=== PATIENT | female | born 1960 | race Caucasian/White ===

== ENCOUNTER → 2018-02-04 16:27 | Outpatient (REF) | payer OTHER, SELFPAY | LOC: LAB 16:27 | PROVIDERS: Visit Provider Otolaryngology | DX: H90.0 Conductive hearing loss, bilateral (principal); H60.311 Diffuse otitis externa, right ear | CPT/HCPCS: 87070; 87077; 87186; 87205 ==

== ENCOUNTER → 2018-07-15 19:29 | Outpatient (REF) | payer OTHER, MEDICAID, SELFPAY | LOC: LAB 19:29 | PROVIDERS: Visit Provider Otolaryngology | DX: H60.311 Diffuse otitis externa, right ear (principal) | CPT/HCPCS: 87070; 87077; 87186; 87205 ==

== ENCOUNTER → 2018-08-01 11:38 | Outpatient (CLI) | payer OTHER, MEDICAID, SELFPAY ==
[2018-08-01 13:02] LABS: Alanine Aminotransferase 36 IU/L (9-52); Albumin 4.6 g/dL (3.5-5.0); Albumin Globulin Ratio 1.6 (1.0-2.8); Alkaline Phosphatase 56 U/L (38-126); Aspartate Aminotransferase 32 IU/L (14-36); Bilirubin Total 0.3 mg/dL (0.2-1.3); Blood Urea Nitrogen 12 mg/dL (7-17); Calcium 9.5 mg/dL (8.4-10.2); Carbon Dioxide 27 mmol/L (22-32); Chloride 100 mmol/L (98-107); Estimated Glomerular Filt Rate > 60.0 mL/min (>60); Globulin 2.8 g/dL (1.7-4.1); Glucose 129 mg/dL (70-100); HEMOLYSIS < 15 (0-50); Potassium 4.5 mmol/L (3.4-5.1); Sodium 138 mmol/L (137-145); Total Protein 7.4 g/dL (6.3-8.2)
== END ==
PROVIDERS: PCP Student in an Organized Health Care Education/Training Program; Visit Provider Otolaryngology
DX: H60.311 Diffuse otitis externa, right ear (principal); H72.01 Central perforation of tympanic membrane, right ear
CPT/HCPCS: 36415; 80053

== ENCOUNTER → 2018-09-13 18:51 | Outpatient (REF) | payer OTHER, MEDICAID, SELFPAY | LOC: LAB 18:51 | PROVIDERS: PCP Student in an Organized Health Care Education/Training Program; Visit Provider Otolaryngology | DX: H60.311 Diffuse otitis externa, right ear (principal); H72.01 Central perforation of tympanic membrane, right ear | CPT/HCPCS: 87070; 87077; 87205 ==

== ENCOUNTER → 2018-10-31 10:54 | Outpatient (CLI) | payer OTHER, MEDICAID, SELFPAY ==
[2018-10-31 11:36] LABS: Add Manual Diff / Slide Review NO; Basophils Absolute Auto 0 /uL (0-100); Basophils Percent Auto 0.6 % (0-2); Eosinophils Absolute Auto 100 /uL (0-450); Eosinophils Percent Auto 1.9 % (2-4); Hematocrit 39.9 % (36-46); Hemoglobin 13.6 g/dL (12.0-16.0); Lymphocytes Absolute Auto 2000 /uL (1100-4500); Lymphocytes Percent Auto 25.1 % (25-40); Mean Corpuscular Hemoglobin 33.2 PG (26-34); Mean Corpuscular Volume 97.6 fL (80-100); Monocytes Absolute Auto 500 /uL (0-900); Monocytes Percent Auto 6.7 % (3-14); Neutrophils Absolute Auto 5100 /uL (1500-7000); Neutrophils Percent Auto 65.7 % (50-75); Platelet Count 300 X10^3/uL (150-400); Red Blood Cell Count 4.09 X10^6/uL (4.0-5.2); Red Cell Distribution Width 12.1 % (11.6-14.8); White Blood Cell Count 7.8 X10^3/uL (4.5-11.0)
[2018-10-31 13:02] LABS: Alanine Aminotransferase 49 IU/L (9-52); Albumin 4.6 g/dL (3.5-5.0); Albumin Globulin Ratio 1.8 (1.0-2.8); Alkaline Phosphatase 52 U/L (38-126); Aspartate Aminotransferase 38 IU/L (14-36); BUN Creatinine Ratio 17.5 (6-22); Bilirubin Total 0.3 mg/dL (0.2-1.3); Blood Urea Nitrogen 14 mg/dL (7-17); Carbon Dioxide 24 mmol/L (22-32); Chloride 99 mmol/L (98-107); Estimated Glomerular Filt Rate > 60.0 mL/min (>60); Globulin 2.6 g/dL (1.7-4.1); Glucose 87 mg/dL (70-100); HEMOLYSIS < 15 (0-50); Potassium 4.5 mmol/L (3.4-5.1); Sodium 135 mmol/L (137-145); Total Protein 7.2 g/dL (6.3-8.2)
== END ==
PROVIDERS: PCP Student in an Organized Health Care Education/Training Program; Visit Provider Internal Medicine Infectious Disease
DX: H70.11 Chronic mastoiditis, right ear (principal)
CPT/HCPCS: 36415; 80053; 85025

== ENCOUNTER → 2018-11-04 09:49 | Outpatient (CLI) | payer OTHER, MEDICAID, SELFPAY ==
[2018-11-04 10:37] LABS: Add Manual Diff / Slide Review NO; Basophils Absolute Auto 0 /uL (0-100); Basophils Percent Auto 0.4 % (0-2); Eosinophils Absolute Auto 100 /uL (0-450); Eosinophils Percent Auto 1.8 % (2-4); Hematocrit 41.8 % (36-46); Hemoglobin 14.1 g/dL (12.0-16.0); Lymphocytes Absolute Auto 2100 /uL (1100-4500); Lymphocytes Percent Auto 30.1 % (25-40); Mean Corpuscular HGB Conc 33.6 % (30-36); Mean Corpuscular Hemoglobin 32.9 PG (26-34); Monocytes Absolute Auto 600 /uL (0-900); Monocytes Percent Auto 8.3 % (3-14); Neutrophils Absolute Auto 4200 /uL (1500-7000); Neutrophils Percent Auto 59.4 % (50-75); Platelet Count 306 X10^3/uL (150-400); Red Blood Cell Count 4.27 X10^6/uL (4.0-5.2); Red Cell Distribution Width 12.2 % (11.6-14.8)
[2018-11-04 11:22] LABS: Alanine Aminotransferase 37 IU/L (9-52); Albumin 5.1 g/dL (3.5-5.0); Albumin Globulin Ratio 1.8 (1.0-2.8); Alkaline Phosphatase 55 U/L (38-126); Aspartate Aminotransferase 36 IU/L (14-36); BUN Creatinine Ratio 13.3 (6-22); Bilirubin Total 0.3 mg/dL (0.2-1.3); Blood Urea Nitrogen 12 mg/dL (7-17); Carbon Dioxide 25 mmol/L (22-32); Chloride 97 mmol/L (98-107); Estimated Glomerular Filt Rate > 60.0 mL/min (>60); Globulin 2.8 g/dL (1.7-4.1); Glucose 86 mg/dL (70-100); HEMOLYSIS < 15 (0-50); Potassium 4.4 mmol/L (3.4-5.1); Sodium 135 mmol/L (137-145); Total Protein 7.9 g/dL (6.3-8.2)
== END ==
PROVIDERS: PCP Student in an Organized Health Care Education/Training Program; Visit Provider Internal Medicine Infectious Disease
DX: H70.11 Chronic mastoiditis, right ear (principal)
CPT/HCPCS: 36415; 80053; 85025

== ENCOUNTER → 2018-11-09 14:42 | Outpatient (CLI) | payer OTHER, MEDICAID, SELFPAY ==
[2018-11-09 15:14] LABS: Add Manual Diff / Slide Review NO; Basophils Absolute Auto 0 /uL (0-100); Basophils Percent Auto 0.4 % (0-2); Eosinophils Absolute Auto 100 /uL (0-450); Eosinophils Percent Auto 1.9 % (2-4); Hemoglobin 13.4 g/dL (12.0-16.0); Lymphocytes Absolute Auto 1600 /uL (1100-4500); Lymphocytes Percent Auto 24.6 % (25-40); Mean Corpuscular HGB Conc 34.3 % (30-36); Mean Corpuscular Hemoglobin 33.5 PG (26-34); Mean Corpuscular Volume 97.8 fL (80-100); Monocytes Absolute Auto 600 /uL (0-900); Monocytes Percent Auto 9.1 % (3-14); Neutrophils Absolute Auto 4200 /uL (1500-7000); Platelet Count 267 X10^3/uL (150-400); Red Blood Cell Count 3.99 X10^6/uL (4.0-5.2); Red Cell Distribution Width 12.5 % (11.6-14.8); White Blood Cell Count 6.5 X10^3/uL (4.5-11.0)
[2018-11-09 15:29] LABS: Alanine Aminotransferase 33 IU/L (9-52); Albumin 4.7 g/dL (3.5-5.0); Albumin Globulin Ratio 1.7 (1.0-2.8); Alkaline Phosphatase 55 U/L (38-126); Aspartate Aminotransferase 30 IU/L (14-36); Bilirubin Total 0.2 mg/dL (0.2-1.3); Blood Urea Nitrogen 14 mg/dL (7-17); Calcium 9.5 mg/dL (8.4-10.2); Carbon Dioxide 26 mmol/L (22-32); Chloride 100 mmol/L (98-107); Estimated Glomerular Filt Rate 56.7 mL/min (>60); Globulin 2.7 g/dL (1.7-4.1); Glucose 99 mg/dL (70-100); HEMOLYSIS < 15 (0-50); Potassium 4.1 mmol/L (3.4-5.1); Sodium 135 mmol/L (137-145); Total Protein 7.4 g/dL (6.3-8.2)
== END ==
PROVIDERS: PCP Student in an Organized Health Care Education/Training Program; Visit Provider Internal Medicine Infectious Disease
DX: H70.11 Chronic mastoiditis, right ear (principal)
CPT/HCPCS: 36415; 80053; 85025

== ENCOUNTER → 2018-11-14 15:15 | Outpatient (CLI) | payer OTHER, MEDICAID, SELFPAY ==
[2018-11-14 16:30] LABS: Add Manual Diff / Slide Review NO; Basophils Absolute Auto 0 /uL (0-100); Basophils Percent Auto 0.4 % (0-2); Eosinophils Absolute Auto 200 /uL (0-450); Eosinophils Percent Auto 2.3 % (2-4); Hematocrit 38.8 % (36-46); Hemoglobin 13.1 g/dL (12.0-16.0); Lymphocytes Absolute Auto 2200 /uL (1100-4500); Lymphocytes Percent Auto 32.3 % (25-40); Mean Corpuscular HGB Conc 33.8 % (30-36); Mean Corpuscular Hemoglobin 33.5 PG (26-34); Mean Corpuscular Volume 99.2 fL (80-100); Monocytes Absolute Auto 600 /uL (0-900); Monocytes Percent Auto 9.4 % (3-14); Neutrophils Absolute Auto 3800 /uL (1500-7000); Neutrophils Percent Auto 55.6 % (50-75); Platelet Count 268 X10^3/uL (150-400); Red Blood Cell Count 3.91 X10^6/uL (4.0-5.2); Red Cell Distribution Width 12.9 % (11.6-14.8); White Blood Cell Count 6.8 X10^3/uL (4.5-11.0)
[2018-11-14 19:37] LABS: Bilirubin Total 0.3 mg/dL (0.2-1.3); Blood Urea Nitrogen 12 mg/dL (7-17); Calcium 9.7 mg/dL (8.4-10.2); Carbon Dioxide 24 mmol/L (22-32); Chloride 99 mmol/L (98-107); Estimated Glomerular Filt Rate > 60.0 mL/min (>60); Glucose 74 mg/dL (70-100); Potassium 3.9 mmol/L (3.4-5.1); Sodium 134 mmol/L (137-145)
[2018-11-14 19:38] LABS: Alanine Aminotransferase 35 IU/L (9-52); Albumin 4.8 g/dL (3.5-5.0); Albumin Globulin Ratio 1.7 (1.0-2.8); Alkaline Phosphatase 59 U/L (38-126); Aspartate Aminotransferase 35 IU/L (14-36); Globulin 2.8 g/dL (1.7-4.1); HEMOLYSIS < 15 (0-50); Total Protein 7.6 g/dL (6.3-8.2)
== END ==
PROVIDERS: PCP Student in an Organized Health Care Education/Training Program; Visit Provider Internal Medicine Infectious Disease
DX: H70.11 Chronic mastoiditis, right ear (principal)
CPT/HCPCS: 36415; 80053; 85025

== ENCOUNTER → 2019-04-08 13:29 | Outpatient (CLI) | payer OTHER, SELFPAY ==
--- NOTE | 2019-04-08 13:35 | DI.MG.S_ITS ---
BILATERAL DIGITAL SCREENING MAMMOGRAM 3D/2D WITH CAD: 04/08/2019 CLINICAL: Routine screening. Comparison is made to exams dated: 03/07/2013 mammogram, 08/21/2013 mammogram, and 06/05/2017 mammogram - [facility]. There are scattered fibroglandular elements in both breasts. Current study was also evaluated with a Computer Aided Detection (CAD) system. No significant masses, calcifications, or other findings are seen in either breast. There has been no significant interval change. IMPRESSION: NEGATIVE There is no mammographic evidence of malignancy. A 1 year screening mammogram is recommended. This exam was interpreted at Station ID: [id number]. NOTE: For mammograms, a report in lay terms will be sent to the patient. Approximately 15% of breast malignancies will not be visualized mammographically. In the management of a palpable breast mass, a negative mammogram must not discourage biopsy of a clinically suspicious lesion. Electronically Signed By: Gemma fritz/morgan:04/10/2019 09:37:35 letter sent: Normal Exam ACR BI-RADS Category 1: Negative 3341F
== END ==
PROVIDERS: PCP Student in an Organized Health Care Education/Training Program; Visit Provider Student in an Organized Health Care Education/Training Program
DX: Z12.31 Encounter for screening mammogram for malignant neoplasm of breast (principal)
CPT/HCPCS: 77063; 77067

== ENCOUNTER → 2020-02-22 15:16 | Outpatient (CLI) | payer OTHER, MEDICAID, SELFPAY ==
--- NOTE | 2020-02-22 15:18 | DI.RAD.S_ITS ---
PROCEDURE: XR HAND RT 2V INDICATIONS: hand injury TECHNIQUE: To views of the hand(s) acquired. COMPARISON: None. FINDINGS: Bones: No fractures or dislocations. Carpal bones are normally aligned. No suspicious bony lesions. Soft tissues: No suspicious soft tissue calcifications. IMPRESSION: No trauma found, no foreign body seen. Dictated by: Rudy Garay M.D. on 02/22/2020 at 16:42 Approved by: Rudy Garay M.D. on 02/22/2020 at 16:43
== END ==
PROVIDERS: PCP Student in an Organized Health Care Education/Training Program; Referring Provider Student in an Organized Health Care Education/Training Program; Visit Provider Student in an Organized Health Care Education/Training Program
DX: S69.91XA Unspecified injury of right wrist, hand and finger(s), initial encounter (principal); X58.XXXA Exposure to other specified factors, initial encounter
CPT/HCPCS: 73120

== ENCOUNTER → 2020-03-08 10:04 | Outpatient (CLI) | payer OTHER, MEDICAID, SELFPAY ==
[2020-03-08 11:27] LABS: BUN Creatinine Ratio 12.5 (6-22); Blood Urea Nitrogen 8 mg/dL (7-17); Calcium 9.6 mg/dL (8.4-10.2); Carbon Dioxide 29 mmol/L (22-32); Chloride 100 mmol/L (98-107); Cholesterol 164 mg/dL (140-199); Estimated Glomerular Filt Rate > 60.0 mL/min (>60); Glucose 107 mg/dL (80-110); HEMOLYSIS < 15 (0-50); Potassium 3.9 mmol/L (3.4-5.1); Sodium 136 mmol/L (137-145); Triglycerides 58 mg/dL (35-150)
[2020-03-08 11:36] LABS: HDL Cholesterol 138 mg/dL (40-60); LDL Cholesterol Calculated 14 mg/dL (<100)
== END ==
PROVIDERS: PCP Student in an Organized Health Care Education/Training Program; Referring Provider Student in an Organized Health Care Education/Training Program; Visit Provider Student in an Organized Health Care Education/Training Program
DX: Z13.220 Encounter for screening for lipoid disorders (principal); I10 Essential (primary) hypertension
CPT/HCPCS: 36415; 80048; 80061

== ENCOUNTER → 2020-08-07 08:28 | Outpatient (CLI) | payer OTHER, MEDICAID, SELFPAY ==
--- NOTE | 2020-08-07 | DI.MG.S_ITS ---
BILATERAL DIGITAL SCREENING MAMMOGRAM 3D/2D WITH CAD: 08/07/2020 CLINICAL: Routine screening. Comparison is made to exams dated: 03/07/2013 mammogram - [facility], 04/08/2019 mammogram - [facility], 06/05/2017 mammogram, and 08/21/2013 mammogram - [facility]. There are scattered fibroglandular elements in both breasts. Current study was also evaluated with a Computer Aided Detection (CAD) system. No significant masses, calcifications, or other findings are seen in either breast. There has been no significant interval change. IMPRESSION: NEGATIVE There is no mammographic evidence of malignancy. A 1 year screening mammogram is recommended. This exam was interpreted at Station ID: [id number]. NOTE: For mammograms, a report in lay terms will be sent to the patient. Approximately 15% of breast malignancies will not be visualized mammographically. In the management of a palpable breast mass, a negative mammogram must not discourage biopsy of a clinically suspicious lesion. Electronically Signed By: Ian hanna/morgan:08/07/2020 09:04:51 letter sent: Normal Exam ACR BI-RADS Category 1: Negative [id number]
== END ==
PROVIDERS: PCP Student in an Organized Health Care Education/Training Program; Referring Provider Student in an Organized Health Care Education/Training Program; Visit Provider Student in an Organized Health Care Education/Training Program
DX: Z12.31 Encounter for screening mammogram for malignant neoplasm of breast (principal)
CPT/HCPCS: 77063; 77067

== ENCOUNTER → 2020-09-09 11:53 | Outpatient (CLI) | payer OTHER, MEDICAID, SELFPAY ==
[2020-09-09 12:28] LABS: COVID19 -Nasal RAPID Negative (Negative)
== END ==
PROVIDERS: PCP Student in an Organized Health Care Education/Training Program; Visit Provider Surgery
DX: Z01.812 Encounter for preprocedural laboratory examination (principal); Z20.822 Contact with and (suspected) exposure to COVID-19
CPT/HCPCS: 87635; C9803

== ENCOUNTER 2020-09-10 09:30 | Outpatient (RCR) | payer OTHER, MEDICAID, SELFPAY ==
--- NOTE | 2020-05-31 12:11 | OT.OP.TRT ---
Visit Care Team Role Provider Type Zacarias Fermin MD Attending Provider Physician Primary Care Provider Referring Provider Specialty: Internal Medicine Address: [address] [place] [address], [address], [address] Email: [email or web address] Occupational Therapy Treatment Note OT Outpatient Treatment Note - Adult Start: 05/17/20 15:58 Freq: Status: Active Protocol: Document 05/31/20 12:00 AMS (Rec: 05/31/20 12:11 AMS [id number]) OT Outpatient Adult Treatment Note Session Time Visit Start Time 10:30 Visit Stop Time 11:15 Total Visit Minutes 45 Visit Information Plan of Care Dates 05/17/20-07/12/20 Setting Treatment Setting Outpatient Care Visit Type Note Type Treatment Note General Information General Information Patient is a 59 year-old right hand dominant female referred to outpatient OT by PCP secondary to right hand injury . PMH: N/A. Health history form. - Subjective Identification Type Name Identification Reconciled With Medical Record Observations Ana reported difficulty managing piece of tape for her 'hearing aide'. Patient/Caregiver Compliance with Home Excellent Exercise Program - Objective Objective Measurements Please refer to objective section of note for specific details. Short Term Goals 1. 0-30 degrees hyperextension of 2nd MCPJ. 2. 0-30 degrees hyperextension of 3rd MCPJ. 3. 0-30 degrees hyperextension of 4th MCPJ. 4. 0-30 degrees hyperextension of 5th MCPJ. Addresser Goals 1. Patient will be modified independent with distal upper extremity home exercise program utilizing provided written and visual instructions. 2. Patient will present with increased functional ability to incorporate dominant right hand in day-to-day life; this will be evidenced by Ana obtaining a score of 25.0 or less on the QuickDASH UE Outcome Measure. 3. Patient will present with increased functional abilities of the right upper extremity; this will be evidenced by patient's ability to return to yoga practice without complaints of pain/discomfort. - Treatment 3 Descriptor Ultrasound. 20% duty cycle. 2. 0 w/cm2. Address inflammation of the hand. Dorsal/volar surfaces focus on prox to 2nd and 3rd MCP joints. 2 Descriptor Joint mobs. Facilitation of MCPJ extension of digits 2-5. 1 Descriptor Obj manipulation. Get-a-position classifier. Bead work. Exercises 2 Descriptor Spherical ball. 1.1# spherical ball. 2x10. 1 Descriptor HEP/POC. Provided medium firm green theraputty for home use; recommended working on digit abduction, digit extension, thumb extension, and functional grasp patterns - pincer grasp, gant pinch, 3-jaw pinch. Recommended bead opposition work and wall yoga (L <-> R weight shifting; forward <-> backwards weight shifting (going up onto toes and back onto heels)). - Assessment Assessment of Improvement Decreased functional independence w/ manipulation of various sized objects; decreased hand/digit strength of the R hand. Decreased tolerance for weight bearing onto the R palm; discomfort experienced w/ L <-> R and forward <-> backwards weight shifting w/ modified weight bearing at wall. Recommend progressing to dynamic surface and/or repositioning of feet further back from wall as tolerated/as able. Ana carries over all recommendations relative to HEP. Recommendations: increase dynamic nature of activities/ exercises as able/tolerated relative to weight bearing; recommend continuing to address inflammation. - Plan Therapy Recommendations Continue with Current Program, Advance per Rehabilitation Protocol
--- NOTE | 2020-06-06 15:54 | OT.OP.TRT ---
Visit Care Team Role Provider Type Zacarias Fermin MD Attending Provider Physician Primary Care Provider Referring Provider Specialty: Internal Medicine Address: [address] [place] [address], [address], [address] Email: [email or web address] Occupational Therapy Treatment Note OT Outpatient Treatment Note - Adult Start: 05/17/20 15:58 Freq: Status: Active Protocol: Document 06/06/20 15:45 AMS (Rec: 06/06/20 15:54 AMS [id number]) OT Outpatient Adult Treatment Note Session Time Visit Start Time 13:00 Visit Stop Time 13:42 Total Visit Minutes 42 Visit Information Plan of Care Dates 05/17/20-07/12/20 Setting Treatment Setting Outpatient Care Visit Type Note Type Treatment Note General Information General Information Patient is a 59 year-old right hand dominant female referred to outpatient OT by PCP secondary to right hand injury . PMH: N/A. Health history form. - Subjective Identification Type Name Identification Reconciled With Medical Record Observations Ana reported 90% compliance with execution of home exercise program; she admitted to forgetting the 'wall yoga' . Patient/Caregiver Compliance with Home Excellent Exercise Program - Objective Objective Measurements Please refer to objective section of note for specific details. Short Term Goals 1. 0-30 degrees hyperextension of 2nd MCPJ. 2. 0-30 degrees hyperextension of 3rd MCPJ. 3. 0-30 degrees hyperextension of 4th MCPJ. 4. 0-30 degrees hyperextension of 5th MCPJ. Correction Goals 1. Patient will be modified independent with distal upper extremity home exercise program utilizing provided written and visual instructions. 2. Patient will present with increased functional ability to incorporate dominant right hand in day-to-day life; this will be evidenced by Ana obtaining a score of 25.0 or less on the QuickDASH UE Outcome Measure. 3. Patient will present with increased functional abilities of the right upper extremity; this will be evidenced by patient's ability to return to yoga practice without complaints of pain/discomfort. - Treatment 3 Descriptor Ultrasound. 20% duty cycle. 2. 0 w/cm2. Address inflammation of the hand. Dorsal/volar surfaces focus on prox to 2nd and 3rd surfaces. Skin intact pre- and post- treatment. 2 Descriptor Joint mobs. Facilitation of MCPJ extension of digits 2-5. Focus on 2nd and 3rd digits. 1 Descriptor Obj manipulation. Get-a-outdoor advertising leasing agent. Single clothespin. Multiple clothespins. Exercises 2 Descriptor Spherical ball. 2.2# spherical ball. 2x10. 3.3# spherical ball. 1 Descriptor HEP/POC. Abduction of digits w / double rubberband. Lifting up cans (for proximal strengthening w/ object manipulation). Recommended extension work w/ single rubberband (duck --> digit extension in gravity eliminated plane) and isometric hold w/ digit and wrist extension for 3-5 seconds w/ single rubberband. Discussed working towards modified weight bearing status at floor level in quadriped/ at wall as tolerated for return to yoga. Ana denied questions. - Assessment Assessment of Improvement Decreased functional independence w/ manipulation of various sized objects; decreased hand/digit strength of the R hand. Decreased proximal UE strength noted by patient and observed in treatment session; this is likely d/t learned non-use and patient protecting right hand from further injury. Improving digit and hand strength compared to previous treatment session; this is evidenced by progression to spherical weighted ball w/ increased resistance. Improving translation and separation of the 2 sides of the hand, as able to progress small clothespins activity. Ana carries over all recommendations relative to HEP. Recommendations: increase dynamic nature of activities/ exercises as able/tolerated relative to weight bearing - Plan Therapy Recommendations Continue with Current Program, Advance per Rehabilitation Protocol
--- NOTE | 2020-06-10 12:26 | OT.OP.TRT ---
Visit Care Team Role Provider Type Zacarias Fermin MD Attending Provider Physician Primary Care Provider Referring Provider Specialty: Internal Medicine Address: [address] [place] [address], [address], [address] Email: [email or web address] Occupational Therapy Treatment Note OT Outpatient Treatment Note - Adult Start: 05/17/20 15:58 Freq: Status: Active Protocol: Document 06/10/20 12:19 AMS (Rec: 06/10/20 12:26 AMS [id number]) OT Outpatient Adult Treatment Note Session Time Visit Start Time 09:30 Visit Stop Time 10:15 Total Visit Minutes 45 Visit Information Plan of Care Dates 05/17/20-07/12/20 Setting Treatment Setting Outpatient Care Visit Type Note Type Treatment Note General Information General Information Patient is a 59 year-old right hand dominant female referred to outpatient OT by PCP secondary to right hand injury . PMH: N/A. Health history form. - Subjective Identification Type Name Identification Reconciled With Medical Record Observations Complaints of overall weakness of upper extremity. Request to review 'wall yoga' exercises. Patient/Caregiver Compliance with Home Excellent Exercise Program - Objective Objective Measurements Please refer to objective section of note for specific details. Short Term Goals 1. 0-30 degrees hyperextension of 2nd MCPJ. 2. 0-30 degrees hyperextension of 3rd MCPJ. 3. 0-30 degrees hyperextension of 4th MCPJ. 4. 0-30 degrees hyperextension of 5th MCPJ. Nurse Charge Rn Goals 1. Patient will be modified independent with distal upper extremity home exercise program utilizing provided written and visual instructions. 2. Patient will present with increased functional ability to incorporate dominant right hand in day-to-day life; this will be evidenced by Ana obtaining a score of 25.0 or less on the QuickDASH UE Outcome Measure. 3. Patient will present with increased functional abilities of the right upper extremity; this will be evidenced by patient's ability to return to yoga practice without complaints of pain/discomfort. - Treatment 3 Descriptor Ultrasound. 20% duty cycle. 2. 0 w/cm2. Address inflammation of the hand. x 8 minutes. Volar surfaces focus on distal palmar surface/radial side of hand. Skin intact pre- and post- treatment. 2 Descriptor Joint mobs. Facilitation of MCPJ extension of digits 2-5. 1 Descriptor Obj manipulation. Get-a-bench molder apprentice. Multiple clothespins - horizontal surface, vertical surface. Exercises 5 Descriptor TT yoga. L <--> R. 2x10. Fowards <--> Backwards. 2x10. Yellow balance disk. 2x10. 4 Descriptor Wall Yoga L <-> R weight bearing. 2x10. Palm <--> fingertips. Heels <- -> Toes. 2x10. 3 Descriptor Crunch and extend ( hyperextension) TT. 2x10. 2 Descriptor Distal UE strengthening Spherical ball. 3.3# spherical ball. 2x10. Wooden dowel. 3# DB attached. x 3 cycles. 1 Descriptor HEP/POC. Reviewed wall yoga as requested by patient. Recommended working on crunch <-> extend (hyperextension at MCP joints). Ana denied questions. - Assessment Assessment of Improvement Decreased functional independence w/ manipulation of various sized objects; decreased hand/digit strength of the R hand. Weakness of R UE overall secondary to non use d/t injury. Positive response to ultrasound treatment; recommend continuing this treatment based on feedback. Advanced therapeutic exercises/ activities on this treatment date. Ana carries over all recommendations relative to HEP. Recommendations: increase dynamic nature of activities/ exercises as able/tolerated relative to weight bearing; recommend consideration of arm bike for working on maintenance/sustained grasp for functional purposes. - Plan Therapy Recommendations Continue with Current Program, Advance per Rehabilitation Protocol
--- NOTE | 2020-06-17 11:43 | OT.OP.TRT ---
Visit Care Team Role Provider Type Zacarias Fermin MD Attending Provider Physician Primary Care Provider Referring Provider Specialty: Internal Medicine Address: [address] [place] [address], [address], [address] Email: [email or web address] Occupational Therapy Treatment Note OT Outpatient Treatment Note - Adult Start: 05/17/20 15:58 Freq: Status: Active Protocol: Document 06/17/20 11:19 AMS (Rec: 06/17/20 11:43 AMS [id number]) OT Outpatient Adult Treatment Note Session Time Visit Start Time 09:40 Visit Stop Time 10:20 Total Visit Minutes 40 Visit Information Plan of Care Dates 05/17/20-07/12/20 Setting Treatment Setting Outpatient Care Visit Type Note Type Treatment Note General Information General Information Patient is a 59 year-old right hand dominant female referred to outpatient OT by PCP secondary to right hand injury . PMH: N/A. Health history form. - Subjective Identification Type Name Identification Reconciled With Medical Record Observations Complaints of weakness/fatigue . Patient/Caregiver Compliance with Home Excellent Exercise Program - Objective Objective Measurements Please refer to objective section of note for specific details. Short Term Goals 1. 0-30 degrees hyperextension of 2nd MCPJ. 2. 0-30 degrees hyperextension of 3rd MCPJ. 3. 0-30 degrees hyperextension of 4th MCPJ. 4. 0-30 degrees hyperextension of 5th MCPJ. Long-Term Goals 1. Patient will be modified independent with distal upper extremity home exercise program utilizing provided written and visual instructions. 2. Patient will present with increased functional ability to incorporate dominant right hand in day-to-day life; this will be evidenced by Ana obtaining a score of 25.0 or less on the QuickDASH UE Outcome Measure. 3. Patient will present with increased functional abilities of the right upper extremity; this will be evidenced by patient's ability to return to yoga practice without complaints of pain/discomfort. - Treatment 3 Descriptor Ultrasound. 20% duty cycle. 2. 0 w/cm2. Address inflammation of the hand. x 8 minutes. Volar surface focus on distal palmar surface/radial side of hand. Skin intact pre- and post- treatment. 2 Descriptor Joint mobs. Facilitation of MCPJ extension of digits 2-5. 1 Descriptor Obj manipulation. Get-a-roll plugger machine operator. Multiple clothespins - horizontal surface, vertical surface. Exercises 7 Descriptor Parallel bar. Weight bearing walk on singular parallel bar. 4 x 6 feet. 6 Descriptor Functional weight bearing. Quadriped. Modified walk-outs. 1x10. Weight shifting seated. Hand. 2x10. Functional weight shift. Elbow . 1x5. 5 Descriptor TT yoga. L <--> R. 2x10. Fowards <--> Backwards. 2x10. Circular weight bearing. 1x10. N/A 06/17 Balance Disk 4 Descriptor Wall Yoga L <-> R weight bearing. 2x10. 3 Descriptor Crunch and extend ( hyperextension) TT. 2x10. 2 Descriptor Distal UE strengthening Spherical ball. 3.3# spherical ball. 2x10. Wooden dowel. 3# DB attached. x 3 cycles. 1 Descriptor HEP/POC. Reviewed wall yoga as requested by patient. Recommended working on crunch <-> extend (hyperextension at MCP joints). Ana denied questions. - Assessment Assessment of Improvement Upgraded weight bearing exercises/activities. Decreased activity tolerance; decreased functional strength of R hand. Continued positive response to ultrasound treatment; recommend continuing this treatment based on feedback. Ana carries over all recommendations relative to HEP. Recommendations: increase dynamic nature of activities/ exercises as able/tolerated relative to weight bearing; recommend consideration of arm bike for working on maintenance/sustained grasp for functional purposes. - Plan Therapy Recommendations Continue with Current Program, Advance per Rehabilitation Protocol
--- NOTE | 2020-06-24 11:55 | OT.OP.TRT ---
Visit Care Team Role Provider Type Zacarias Fermin MD Attending Provider Physician Primary Care Provider Referring Provider Specialty: Internal Medicine Address: [address] [place] [address], [address], [address] Email: [email or web address] Occupational Therapy Treatment Note OT Outpatient Treatment Note - Adult Start: 05/17/20 15:58 Freq: Status: Active Protocol: Document 06/24/20 11:45 AMS (Rec: 06/24/20 11:55 AMS [id number]) OT Outpatient Adult Treatment Note Session Time Visit Start Time 09:30 Visit Stop Time 10:14 Total Visit Minutes 44 Visit Information Plan of Care Dates 05/17/20-07/12/20 Setting Treatment Setting Outpatient Care Visit Type Note Type Treatment Note General Information General Information Patient is a 59 year-old right hand dominant female referred to outpatient OT by PCP secondary to right hand injury . PMH: N/A. Health history form. - Subjective Identification Type Name Identification Reconciled With Medical Record Observations I know I have arthritis per Ana. I had a really hard time making a grocery list this morning. My writing was awful. 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 Patient/Caregiver Compliance with Home Excellent Exercise Program - Objective Objective Measurements Please refer to objective section of note for specific details. Short Term Goals 1. 0-30 degrees hyperextension of 2nd MCPJ. 2. 0-30 degrees hyperextension of 3rd MCPJ. 3. 0-30 degrees hyperextension of 4th MCPJ. 4. 0-30 degrees hyperextension of 5th MCPJ. Nursing Home Goals 1. Patient will be modified independent with distal upper extremity home exercise program utilizing provided written and visual instructions. 2. Patient will present with increased functional ability to incorporate dominant right hand in day-to-day life; this will be evidenced by Ana obtaining a score of 25.0 or less on the QuickDASH UE Outcome Measure. 3. Patient will present with increased functional abilities of the right upper extremity; this will be evidenced by patient's ability to return to yoga practice without complaints of pain/discomfort. - Treatment 3 Descriptor Ultrasound. 20% duty cycle. 2. 0 w/cm2. Address inflammation of the hand. x 8 minutes. Volar surface focus on distal palmar surface/radial side of hand. Skin intact pre- and post- treatment. 2 Descriptor Joint mobs. Facilitation of MCPJ extension of digits 2-5. 1 Descriptor Obj manipulation. Get-a-community health advisor. 3 to 4 small clothespins manipulatives. Pencil olympics. Bolts; flat head/berman head screwdriver. Exercises 7 Descriptor Parallel bar. Weight bearing walk on singular parallel bar. 4 x 6 feet. 6 Descriptor Functional weight bearing. Quadriped. Modified walk-outs. 1x10. Weight shifting seated. Hand. 2x10. Functional weight shift. Elbow . 1x5. 5 Descriptor TT yoga. L <--> R. 2x10. Fowards <--> Backwards. 2x10. Circular weight bearing. 1x10. N/A 06/17 Balance Disk 4 Descriptor Wall Yoga L <-> R weight bearing. 2x10. 3 Descriptor Crunch and extend ( hyperextension) TT. 2x10. 1 Descriptor HEP/POC. Reviewed basic joint protection principles for the hands, including avoiding static positions and avoiding positions of deformity of the digits w/ various grasp patterns. Discussed various options to support dynamic motor coordination of the hand to support handwriting and other functional day-to-day tasks/meaningful occupations. With patient' collaboration, able to identify knitting, playing cards, keyboarding, and other 'fiddling' activities. Ana denied questions. - Assessment Assessment of Improvement Able to tolerate quadriped weight bearing for work tasks in [facility]. Concern verbalized at this time to progressing to full body weight bearing as needed for return to yoga; encouraged modification of positions. Increased concern verbalized on this date in re: fine motor /object manipulation abilities . Thus, collaborated w/ patient to identify various activities (including functional tasks) w/ specific movements that would support improvement in this area. Completed basic joint protection education. Recommend following up w/ observations re: writing, keyboarding, knitting, card playing, functional weight bearing; in addition, recommend follow-up appointment next week and then increasing time between appointments given carry-over. Recommendations: increase dynamic nature of activities/ exercises as able. - Plan Therapy Recommendations Continue with Current Program, Advance per Rehabilitation Protocol
--- NOTE | 2020-07-01 11:53 | OT.OPPOC ---
Physical, Occupational & Speech Therapy At [facility] Ana Tyler [id number] Ana Tyler Visit Care Team Role Provider Type Zacarias Fermin MD Attending Provider Physician Primary Care Provider Referring Provider Address: [address] [place] [address], [address], [address] Occupational Therapy Plan of Care OT Outpatient Adult Evaluation Start: 05/17/20 15:58 Freq: Status: Active Protocol: Document 05/17/20 15:58 AMS (Rec: 05/17/20 16:53 AMS [id number]) General Information Session Time Visit Start Time 10:35 Visit Stop Time 11:20 Total Visit Minutes 45 Visit Information Plan of Care Dates 05/17/20-07/12/20 Insurance Information [facility] Setting Treatment Setting Outpatient Care Visit Type Note Type Initial Evaluation Goals Short Term Goals Short Term Goals 1. 0-30 degrees hyperextension of 2nd MCPJ. 2. 0-30 degrees hyperextension of 3rd MCPJ. 3. 0-30 degrees hyperextension of 4th MCPJ. 4. 0-30 degrees hyperextension of 5th MCPJ. Skilled Nursing Goals Skilled Nursing Goals 1. Patient will be modified independent with distal upper extremity home exercise program utilizing provided written and visual instructions. 2. Patient will present with increased functional ability to incorporate dominant right hand in day-to-day life; this will be evidenced by Ana obtaining a score of 25.0 or less on the QuickDASH UE Outcome Measure. 3. Patient will present with increased functional abilities of the right upper extremity; this will be evidenced by patient's ability to return to yoga practice without complaints of pain/discomfort. Assessment/Plan Assessment Treatment Assessment Patient is a 59 year-old right hand dominant female referred to outpatient OT by PCP secondary to right hand injury . PMH: N/A. Health history form. Evaluation findings: Ana reports falling and hitting right hand onto cement . Mild edema of R hand. Denied use of splint. Reports waking up w/ R hand cramping. Denied changes in sensation. 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 QuickDASH UE Outcome Measure = 59.1. Pain Assessment Grid; 2-3 out of 10 on the Pain Assessment Grid relative to dorsal R MCP joints and pain of dorsum of hand between 2nd and 3rd digits. Dynamometer testing = avg 54.7# of force w/ L sedimentationist; avg 16.3# of force w/ R sedimentationist. Pinchometer testing = avg 17.0 # of force w/ L lateral pinch; avg 10.3# of force w/ R lateral pinch. Intrinsic tightness. Goniometer measurements were taken= R hand 2nd MCPJ 0-85; PIPJ 0-105; DIPJ 0-63. R hand 3rd MCPJ 0-75; PIPJ 0-90; DIPJ 0-60. R hand 4th MCPJ 0-72; PIPJ 0-103; DIPJ 0-63. R hand 5th MCPJ 0-90; PIPJ 0-95; DIPJ 0-65. No hyperextension of MCP joints of digits 2-5 noted . 0-0 hyperextension 2 - 5. R thumb MPJ 0-48; R IPJ 0-55. L hand 2nd MCPJ 0-95; PIPJ 0-103 ; DIPJ 0-60. L hand 3rd MCPJ 0 -95; PIPJ 0-105; DIPJ 0-65. L hand 4th MCPJ 0-95; PIPJ 0-105 ; DIPJ 0-70. L hand 5th MCPJ 0 -98; PIPJ 0-100; DIPJ 0-65. L thumb MPJ 0-60; IPJ 0-60. Hyperextension of L hand digits 2-5; 0-38 2nd digit; 0- 40 3rd digit; 0-45 4th digit; 0-45 5th digit. Outpatient OT is recommended to address the above areas and to maximize patient's ability to return to meaningful activities of daily living. Home Exercise Program Initiated passive range of motion to support hyperextension of the MCP joints of digits 2-5 left hand . Education re: contrast baths ; handout provided and discussed modification(s). Recommended strengthening of digits into extension. Handouts were provided for exercises. Plan Comment 8 weeks Treatment Frequency Once a Week Therapeutic Contents Active Range of Motion, Adaptive Equipment Education, Client Education,Cognitive Skills Development,Functional Activities,Home Exercise Program,Joint Protection, Manual Therapy,Education, Neurodevelopment Treatment, Neuromuscular Re-Education, Self-Care,Stretching/ Flexibility Activities, Therapeutic Activities, Therapeutic Exercises Sensory Assessment Sensory Profile2 Functional Wrist/Hand Scan Hand Side OT Outpatient Treatment Note - Adult Start: 05/17/20 15:58 Freq: Status: Active Protocol: Document 07/01/20 11:25 AMS (Rec: 07/01/20 11:52 AMS [id number]) OT Outpatient Adult Treatment Note Session Time Visit Start Time 09:30 Visit Stop Time 10:15 Total Visit Minutes 45 Visit Information Plan of Care Dates 07/01/20-08/26/20 Setting Treatment Setting Outpatient Care Visit Type Note Type Progress Note General Information General Information Patient is a 59 year-old right hand dominant female referred to outpatient OT by PCP secondary to right hand injury . PMH: N/A. Health history form. - Subjective Identification Type Name Identification Reconciled With Medical Record Observations I can tell that this hand got tired just from writing my [employer] cards per Ana. I still haven't been working on the yoga. I will get to that per Ana. Patient/Caregiver Compliance with Home Excellent Exercise Program - Objective Objective Measurements Please refer to objective section of note for specific details. Short Term Goals 1. 0-20 degrees hyperextension of 2nd MCPJ. = 0-15 degrees active MCPJ hyperext 2. 0-20 degrees hyperextension of 3rd MCPJ. = 0-5 degrees active MCPJ hyperext 3. 0-20 degrees hyperextension of 4th MCPJ. = 0-10 degrees active MCPJ hyperext 4. 0-20 degrees hyperextension of 5th MCPJ. = 0-10 degrees active MCPJ hyperext Sole Filler Goals 1. Patient will be modified independent with distal upper extremity home exercise program utilizing provided written and visual instructions. 07/01/20= 50% met 2. Patient will present with increased functional ability to incorporate dominant right hand in day-to-day life; this will be evidenced by Ana obtaining a score of 25.0 or less on the QuickDASH UE Outcome Measure. 3. Patient will present with increased functional abilities of the right upper extremity; this will be evidenced by patient's ability to return to yoga practice without complaints of pain/discomfort. 07/01/20= 25% met - Treatment 3 Descriptor Ultrasound. 20% duty cycle. 2. 0 w/cm2. Address inflammation of the hand. x 8 minutes. Volar surface focus on distal palmar surface/radial side of hand. Skin intact pre- and post- treatment. 1 Descriptor Obj manipulation. Get-a-sedimentationist. 3 to 4 small clothespins manipulatives. Paperclips. Buttons. Tweezers. Bolts; flat head/berman head screwdriver. Exercises 3 Descriptor Crunch and extend ( hyperextension) TT. 2x10. 1 Descriptor HEP/POC. Reviewed current HEP recommendations. Ana denied questions. - Assessment Assessment of Improvement Ana has made progress over the last certification period relative to active hyperextension of digits (AROM ), activity tolerance, tolerance for weight bearing and motor coordination/object manipulation abilities; this is evidenced by patient report and some progress that has been made towards established OT goals. Despite progress, Ana continues to complain of hand fatigue/digit weakness and inability to tolerate full body weight bearing as needed for return to yoga practice. Thus, continued outpatient OT is recommended to support Ana 's successful return to participation in various meaningful activities without complaints of pain/discomfort or impairments. Based on feedback from Ana and her insight into activities that are limited in her day-to-day life and her ability to carry- over recommendations, including joint protection principles, it is recommended that treatment frequency is reduced to 1 x every 2-3 weeks . Recommendations: increase dynamic nature of activities/ exercises as able. - Plan Therapy Recommendations Continue with Current Program, Advance per Rehabilitation Protocol Comment 8 weeks Comment Reduce frequency 1 x 2-3 weeks Therapeutic Contents Active Range of Motion, Adaptive Equipment Education, Client Education,Functional Activities,Home Exercise Program,Joint Protection, Manual Therapy,Education, Neurodevelopment Treatment, Neuromuscular Re-Education, Self-Care,Stretching/ Flexibility Activities, Therapeutic Activities, Therapeutic Exercises, Modalities Modalities As Needed,As Prescribed Types of Modalities Ultrasound Additional Types of Modalities Heat/Cold/E-stim Electronically Signed by: Allyson Michaels, OT 07/01/20 3924 Please Sign and Return: I have reviewed this Plan of Care and certify that the skilled therapy services above are required to meet the patient?s needs. Physician Signature Date Printed Name and Credentials Clinical Instructor Signature Printed Name and Credentials
--- NOTE | 2020-07-22 15:30 | OT.OP.TRT ---
Visit Care Team Role Provider Type Zacarias Fermin MD Attending Provider Physician Primary Care Provider Referring Provider Specialty: Internal Medicine Address: [address] [place] [address], [address], [address] Email: [email or web address] Occupational Therapy Treatment Note OT Outpatient Treatment Note - Adult Start: 05/17/20 15:58 Freq: Status: Active Protocol: Document 07/22/20 15:30 AMS (Rec: 07/23/20 10:39 AMS [id number]) OT Outpatient Adult Treatment Note Session Time Visit Start Time 09:30 Visit Stop Time 10:00 Total Visit Minutes 30 Visit Information Plan of Care Dates 07/01/20-08/26/20 Setting Treatment Setting Outpatient Care Visit Type Note Type Treatment Note General Information General Information Patient is a 59 year-old right hand dominant female referred to outpatient OT by PCP secondary to right hand injury . PMH: N/A. Health history form. - Subjective Identification Type Name Identification Reconciled With Medical Record Observations I noticed that I can't bend my fingers as far with this hand compared to my other hand per Ana. Patient/Caregiver Compliance with Home Excellent Exercise Program - Objective Objective Measurements Please refer to objective section of note for specific details. Short Term Goals 1. 0-20 degrees hyperextension of 2nd MCPJ. = 0-15 degrees active MCPJ hyperext 2. 0-20 degrees hyperextension of 3rd MCPJ. = 0-5 degrees active MCPJ hyperext 3. 0-20 degrees hyperextension of 4th MCPJ. = 0-10 degrees active MCPJ hyperext 4. 0-20 degrees hyperextension of 5th MCPJ. = 0-10 degrees active MCPJ hyperext Halfway Goals 1. Patient will be modified independent with distal upper extremity home exercise program utilizing provided written and visual instructions. 07/01/20= 50% met 2. Patient will present with increased functional ability to incorporate dominant right hand in day-to-day life; this will be evidenced by Ana obtaining a score of 25.0 or less on the QuickDASH UE Outcome Measure. 3. Patient will present with increased functional abilities of the right upper extremity; this will be evidenced by patient's ability to return to yoga practice without complaints of pain/discomfort. 07/01/20= 25% met - Treatment 3 Descriptor Ultrasound. 20% duty cycle. 2. 0 w/cm2. Address inflammation of the hand. x 8 minutes. Volar surface focus on distal palmar surface/radial side of hand. Skin intact pre- and post- treatment. 2 Descriptor Joint mobs. Facilitation of MCPJ extension of digits 2-5. 1 Descriptor Obj manipulation. Get-a-surgical lead. 3 to 4 small clothespins manipulatives. Paperclips. Buttons. Tweezers. Bolts; flat head/berman head screwdriver. Exercises 3 Descriptor Crunch and extend ( hyperextension) TT. 2x10. 1 Descriptor HEP/POC. Reviewed current HEP recommendations. Instructed in additional passive MCP stretch w/ use of end of table . Practiced in treatment session. Ana denied questions . - Assessment Assessment of Improvement Treatment session shortened per patient request. Reviewed protective posturing over several months that may have led to increased tightness/ reduced ROM in flexion pattern of digits of the right hand. Instructed in additional passive range of motion exercise to address flexibility/ROM relative to hyperextension of 2to 5th MCP joints. Discussed progress that has been made from time of initial evaluation. (+) response to US modality and manual therapy. Discussed potential of referral to UE ortho MD specialist for additional diagnostic testing/ exploration of less conservative treatment options . Recommendations: increase dynamic nature of activities/ exercises as able. - Plan Therapy Recommendations Continue with Current Program, Advance per Rehabilitation Protocol
--- NOTE | 2020-08-07 11:58 | OT.OP.TRT ---
Visit Care Team Role Provider Type Zacarias Fermin MD Attending Provider Physician Primary Care Provider Referring Provider Specialty: Internal Medicine Address: [address] [place] [address], [address], [address] Email: [email or web address] Occupational Therapy Treatment Note OT Outpatient Treatment Note - Adult Start: 05/17/20 15:58 Freq: Status: Active Protocol: Document 08/07/20 09:27 AMS (Rec: 08/07/20 11:58 AMS [id number]) OT Outpatient Adult Treatment Note Session Time Visit Start Time 09:30 Visit Stop Time 10:10 Total Visit Minutes 40 Visit Information Plan of Care Dates 07/01/20-08/26/20 Setting Treatment Setting Outpatient Care Visit Type Note Type Treatment Note General Information General Information Patient is a 59 year-old right hand dominant female referred to outpatient OT by PCP secondary to right hand injury . PMH: N/A. Health history form. - Subjective Identification Type Name Identification Reconciled With Medical Record Observations I am still having a hard time with downward dog per Ana. Patient/Caregiver Compliance with Home Excellent Exercise Program - Objective Objective Measurements Please refer to objective section of note for specific details. Short Term Goals 1. 0-20 degrees hyperextension of 2nd MCPJ. = 0-15 degrees active MCPJ hyperext 2. 0-20 degrees hyperextension of 3rd MCPJ. = 0-10 degrees active MCPJ hyperext 3. 0-20 degrees hyperextension of 4th MCPJ. = 0-15 degrees active MCPJ hyperext 4. 0-20 degrees hyperextension of 5th MCPJ. = 0-15 degrees active MCPJ hyperext Halfway Goals 1. Patient will be modified independent with distal upper extremity home exercise program utilizing provided written and visual instructions. 07/01/20= 50% met 2. Patient will present with increased functional ability to incorporate dominant right hand in day-to-day life; this will be evidenced by Ana obtaining a score of 25.0 or less on the QuickDASH UE Outcome Measure. 3. Patient will present with increased functional abilities of the right upper extremity; this will be evidenced by patient's ability to return to yoga practice without complaints of pain/discomfort. 08/07/20= 50% met - Treatment 3 Descriptor Ultrasound. 20% duty cycle. 2. 0 w/cm2. Address inflammation of the hand. x 10 minutes. Volar surface focus on distal palmar surface/radial side of hand. Skin intact pre- and post- treatment. 2 Descriptor Joint mobs. Facilitation of MCPJ extension of digits 2-5. Exercises 1 Descriptor HEP/POC. Reviewed current HEP recommendations. - Assessment Assessment of Improvement Slightly improved hyperextension of the 2nd, 3rd , 4th and 5th digits of the right hand pre-treatment. (+) response to US modality and manual therapy. Improved ROM of MCP joints post modality use and manual therapy in addition to patient report of reduced stiffness of fingers, including the 3rd digit. Mild swelling of R hand. Discomfort of the right hand noted w/ return to yoga practice; discussed modification (use of towel) and use of heat pre- yoga. Recommendations: increase dynamic nature of activities/ exercises as able. - Plan Therapy Recommendations Continue with Current Program, Advance per Rehabilitation Protocol
--- NOTE | 2020-08-13 11:50 | OT.OP.TRT ---
Visit Care Team Role Provider Type Zacarias Fermin MD Attending Provider Physician Primary Care Provider Referring Provider Specialty: Internal Medicine Address: [address] [place] [address], [address], [address] Email: [email or web address] Occupational Therapy Treatment Note OT Outpatient Treatment Note - Adult Start: 05/17/20 15:58 Freq: Status: Active Protocol: Document 08/13/20 11:44 AMS (Rec: 08/13/20 11:50 AMS [id number]) OT Outpatient Adult Treatment Note Session Time Visit Start Time 09:30 Visit Stop Time 10:15 Total Visit Minutes 45 Visit Information Plan of Care Dates 07/01/20-08/26/20 Setting Treatment Setting Outpatient Care Visit Type Note Type Treatment Note General Information General Information Patient is a 59 year-old right hand dominant female referred to outpatient OT by PCP secondary to right hand injury . PMH: N/A. Health history form. - Subjective Identification Type Name Identification Reconciled With Medical Record Observations I have been painting the last couple of days with this hand per Ana. Patient/Caregiver Compliance with Home Excellent Exercise Program - Objective Objective Measurements Please refer to objective section of note for specific details. Short Term Goals 1. 0-20 degrees hyperextension of 2nd MCPJ. = 0-15 degrees active MCPJ hyperext 2. 0-20 degrees hyperextension of 3rd MCPJ. = 0-10 degrees active MCPJ hyperext 3. 0-20 degrees hyperextension of 4th MCPJ. = 0-15 degrees active MCPJ hyperext 4. 0-20 degrees hyperextension of 5th MCPJ. = 0-15 degrees active MCPJ hyperext Mcfp Goals 1. Patient will be modified independent with distal upper extremity home exercise program utilizing provided written and visual instructions. 07/01/20= 50% met 2. Patient will present with increased functional ability to incorporate dominant right hand in day-to-day life; this will be evidenced by Ana obtaining a score of 25.0 or less on the QuickDASH UE Outcome Measure. 3. Patient will present with increased functional abilities of the right upper extremity; this will be evidenced by patient's ability to return to yoga practice without complaints of pain/discomfort. 08/07/20= 50% met - Treatment 3 Descriptor Ultrasound. 20% duty cycle. 2. 0 w/cm2. Address inflammation of the hand. x 10 minutes. Volar surface focus on distal palmar surface/radial side of hand. Skin intact pre- and post- treatment. 2 Descriptor Joint mobs. Facilitation of MCPJ extension of digits 2-5. Exercises 1 Descriptor HEP/POC. Reviewed current HEP recommendations. - Assessment Assessment of Improvement (+) response to ultrasound treatment and manual therapy w / focus on facilitation of hyperextension of MCP joints of 2 - 5 of the R hand. Mild swelling of R hand. Recommendations: increase dynamic nature of activities/ exercises as able. - Plan Therapy Recommendations Continue with Current Program, Advance per Rehabilitation Protocol
--- NOTE | 2020-08-20 10:40 | OT.OP.TRT ---
Visit Care Team Role Provider Type Zacarias Fermin MD Attending Provider Physician Primary Care Provider Referring Provider Specialty: Internal Medicine Address: [address] [place] [address], [address], [address] Email: [email or web address] Occupational Therapy Treatment Note OT Outpatient Treatment Note - Adult Start: 05/17/20 15:58 Freq: Status: Active Protocol: Document 08/20/20 10:37 AMS (Rec: 08/20/20 10:40 AMS [id number]) OT Outpatient Adult Treatment Note Session Time Visit Start Time 09:30 Visit Stop Time 10:15 Total Visit Minutes 45 Visit Information Plan of Care Dates 07/01/20-08/26/20 Setting Treatment Setting Outpatient Care Visit Type Note Type Treatment Note General Information General Information Patient is a 59 year-old right hand dominant female referred to outpatient OT by PCP secondary to right hand injury . PMH: N/A. Health history form. - Subjective Identification Type Name Identification Reconciled With Medical Record Observations My friend is going to help me set-up my bike this weekend on the ehr trainer per Ana. Patient/Caregiver Compliance with Home Excellent Exercise Program - Objective Objective Measurements Please refer to objective section of note for specific details. Short Term Goals 1. 0-20 degrees hyperextension of 2nd MCPJ. = 0-15 degrees active MCPJ hyperext 2. 0-20 degrees hyperextension of 3rd MCPJ. = 0-10 degrees active MCPJ hyperext 3. 0-20 degrees hyperextension of 4th MCPJ. = 0-15 degrees active MCPJ hyperext 4. 0-20 degrees hyperextension of 5th MCPJ. = 0-15 degrees active MCPJ hyperext Prison Goals 1. Patient will be modified independent with distal upper extremity home exercise program utilizing provided written and visual instructions. 07/01/20= 50% met 2. Patient will present with increased functional ability to incorporate dominant right hand in day-to-day life; this will be evidenced by Ana obtaining a score of 25.0 or less on the QuickDASH UE Outcome Measure. 3. Patient will present with increased functional abilities of the right upper extremity; this will be evidenced by patient's ability to return to yoga practice without complaints of pain/discomfort. 08/07/20= 50% met - Treatment 3 Descriptor Ultrasound. 20% duty cycle. 2. 0 w/cm2. Address inflammation of the hand. x 10 minutes. Volar surface focus on distal palmar surface/radial side of hand. Skin intact pre- and post- treatment. 2 Descriptor Joint mobs. Facilitation of MCPJ extension of digits 2-5. Exercises 1 Descriptor HEP/POC. Reviewed current HEP recommendations. - Assessment Assessment of Improvement (+) response to ultrasound treatment and manual therapy w / focus on facilitation of hyperextension of MCP joints of 2 - 5 of the R hand. Mild swelling of R hand. Recommendations: increase dynamic nature of activities/ exercises as able. - Plan Therapy Recommendations Continue with Current Program, Advance per Rehabilitation Protocol
--- NOTE | 2020-09-03 15:30 | OT.OPPN ---
Current Diagnoses Unspecified lack of coordination (09/03/20) Weakness (09/03/20) Unspecified injury of unspecified wrist, hand and finger(s), initial encounter (09/03/20) OT Progress Note OT Outpatient Treatment Note - Adult Start: 05/17/20 15:58 Freq: Status: Active Protocol: Document 09/03/20 15:30 AMS (Rec: 09/04/20 09:18 AMS [id number]) OT Outpatient Adult Treatment Note Session Time Visit Start Time 09:30 Visit Stop Time 10:15 Total Visit Minutes 45 Visit Information Plan of Care Dates 08/26/20-10/07/20 Insurance Information [facility] Setting Treatment Setting Outpatient Care Visit Type Note Type Progress Note General Information General Information Patient is a 59 year-old right hand dominant female referred to outpatient OT by PCP, Zacarias Fermin MD, secondary to right hand injury. PMH: N/A. Health history form. - Subjective Identification Type Name Identification Reconciled With Medical Record Observations I used my bike for 20 minutes yesterday per Ana. Patient/Caregiver Compliance with Home Excellent Exercise Program - Objective Objective Measurements Please refer to objective section of note for specific details. Short Term Goals 1. 0-20 degrees hyperextension of 2nd MCPJ. = 0-15 degrees active MCPJ hyperext 2. 0-20 degrees hyperextension of 3rd MCPJ. = 0-10 degrees active MCPJ hyperext 3. 0-20 degrees hyperextension of 4th MCPJ. = 0-15 degrees active MCPJ hyperext 4. 0-20 degrees hyperextension of 5th MCPJ. = 0-15 degrees active MCPJ hyperext Shirt Sewer Goals 1. Patient will be modified independent with distal upper extremity home exercise program utilizing provided written and visual instructions. 09/03/20= 50% met 2. Patient will present with increased functional ability to incorporate dominant right hand in day-to-day life; this will be evidenced by Ana obtaining a score of 25.0 or less on the QuickDASH UE Outcome Measure. 09/03/20 = obtained a score of 36.4 3. Patient will present with increased functional abilities of the right upper extremity; this will be evidenced by patient's ability to return to yoga practice without complaints of pain/discomfort. 09/03/20 = 50% met; Moderate Difficulty indicated on QuickDASH Sports/Performing Arts Module - Treatment 3 Descriptor Ultrasound. 20% duty cycle. 2. 0 w/cm2. Address inflammation of the hand. x 10 minutes. Volar surface focus on distal palmar surface/radial side of hand. Skin intact pre- and post- treatment. 2 Descriptor Joint mobs. Facilitation of MCPJ extension of digits 2-5. Exercises 1 Descriptor HEP/POC. Reviewed HEP/POC. Ana reports stiffness of the R hand primarily upon waking in the morning. - Assessment Assessment of Improvement Ana presented with mild swelling of the R hand; the only change in routine that was indicated by Ana was use of personal bike on training stand previous date for 20 minutes. 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 Ana also reported some soreness in right shoulder; thus, overall weakness of upper extremity d/t original R handed injury could also lead to increased weight bearing as well. Ana has demonstrated progress over the last certification period relative to active hyperextension of digits 2 to 5 of the hand; however, she continues to be limited in her day-to-day life as indicated on QuickDash UE Outcome Measure and Sports/ Performing Arts Module. She indicated moderate difficulty w/ yoga tasks. She continues to respond positively to ultrasound and manual treatment. Thus, she would likely benefit from continued OT services to support continued return to day-to-day life meaningful activities. Recommendations: increase dynamic nature of activities/ exercises as able. Home Exercise Program Please refer to treatment section of note for specific details. - Plan Therapy Recommendations Continue with Current Program, Advance per Rehabilitation Protocol Comment 6 weeks Frequency of Treatment Once a Week Therapeutic Contents Active Range of Motion, Adaptive Equipment Education, Client Education,Cognitive Skills Development,Functional Activities,Home Exercise Program,Joint Protection, Manual Therapy,Education, Neurodevelopment Treatment, Neuromuscular Re-Education, Self-Care,Stretching/ Flexibility Activities, Therapeutic Activities, Therapeutic Exercises, Modalities Types of Modalities E-Stim,T.E.N. Stimulation,TENS Placement/Application, Ultrasound Additional Types of Modalities Paraffin/Heat/Cold
--- NOTE | 2020-09-10 14:30 | OT.OP.TRT ---
Visit Care Team Role Provider Type Zacarias Fermin MD Attending Provider Physician Primary Care Provider Referring Provider Specialty: Internal Medicine Address: [address] [place] [address], [address], [address] Email: [email or web address] Occupational Therapy Treatment Note OT Outpatient Treatment Note - Adult Start: 05/17/20 15:58 Freq: Status: Active Protocol: Document 09/10/20 15:30 AMS (Rec: 09/11/20 14:20 AMS [id number]) OT Outpatient Adult Treatment Note Session Time Visit Start Time 09:30 Visit Stop Time 10:15 Total Visit Minutes 45 Visit Information Plan of Care Dates 08/26/20-10/07/20 Insurance Information [facility] Setting Treatment Setting Outpatient Care Visit Type Note Type Treatment Note General Information General Information Patient is a 59 year-old right hand dominant female referred to outpatient OT by PCP, Zacarias Fermin MD, secondary to right hand injury. PMH: N/A. Health history form. - Subjective Identification Type Name Identification Reconciled With Medical Record Observations It is tight along here in my palm per Ana. Patient/Caregiver Compliance with Home Excellent Exercise Program - Objective Objective Measurements Please refer to objective section of note for specific details. Short Term Goals 1. 0-20 degrees hyperextension of 2nd MCPJ. = 0-15 degrees active MCPJ hyperext 2. 0-20 degrees hyperextension of 3rd MCPJ. = 0-10 degrees active MCPJ hyperext 3. 0-20 degrees hyperextension of 4th MCPJ. = 0-15 degrees active MCPJ hyperext 4. 0-20 degrees hyperextension of 5th MCPJ. = 0-15 degrees active MCPJ hyperext Double End Tenoner Setter Goals 1. Patient will be modified independent with distal upper extremity home exercise program utilizing provided written and visual instructions. 09/03/20= 50% met 2. Patient will present with increased functional ability to incorporate dominant right hand in day-to-day life; this will be evidenced by Ana obtaining a score of 25.0 or less on the QuickDASH UE Outcome Measure. 09/03/20 = obtained a score of 36.4 3. Patient will present with increased functional abilities of the right upper extremity; this will be evidenced by patient's ability to return to yoga practice without complaints of pain/discomfort. 09/03/20 = 50% met; Moderate Difficulty indicated on QuickDAMyshaadi.in Sports/Performing Arts Module - Treatment 3 Descriptor Ultrasound. 20% duty cycle. 2. 0 w/cm2. Address inflammation of the hand. x 10 minutes. Volar surface focus on distal palmar surface/radial side of hand. Skin intact pre- and post- treatment. 2 Descriptor Joint mobs. Facilitation of MCPJ extension of digits 2-5. Exercises 1 Descriptor HEP/POC. Ana reports stiffness of the R hand primarily upon waking in the morning. - Assessment Assessment of Improvement Ana presented with mild swelling of the R hand. Report of discomfort primarily upon waking in the morning. She is not wearing a splint or brace. Tightness of R palmar fascia tissue; small nodule of 3rd digit w/ reduced tightness and positive response to stretching and massage. No changes reported with weight bearing and progressing to hyperextension of digits which she is able to execute with her contralateral hand. She reports positive response to ultrasound and manual therapies; however, no changes are being noted when participating in meaningful daily tasks. Discussed conferring with PCP for recommendations and/or possible referral to UE ortho specialist. Discussed thickening of palmar fascia tissue w/ patient and to monitor for further tightening into flexion pattern. Ana is able to lay hand flat and weightbear and is able to complete extension stretches on her own. PLAN: Patient to message PCP for direction; therapist to follow-up as appropriate. Home Exercise Program Please refer to treatment section of note for specific details. - Plan Additional Therapy Recommendations Follow-up w/ PCP; return to outpatient if rec for continuation Types of Modalities Ultrasound
--- NOTE | 2020-10-15 13:42 | OT.OP.DC ---
Visit Care Team Role Provider Type Zacarias Fermin MD Attending Provider Physician Primary Care Provider Referring Provider Address: [address] [place] [address], [address], [place], [address] Email: [email or web address] Outpatient OT Outpatient Adult Evaluation Start: 05/17/20 15:58 Freq: Status: Active Protocol: Document 05/17/20 15:58 AMS (Rec: 05/17/20 16:53 AMS [id number]) General Information Session Time Visit Start Time 10:35 Visit Stop Time 11:20 Total Visit Minutes 45 Visit Information Plan of Care Dates 05/17/20-07/12/20 Insurance Information [facility] Setting Treatment Setting Outpatient Care Visit Type Note Type Initial Evaluation Goals Short Term Goals Short Term Goals 1. 0-30 degrees hyperextension of 2nd MCPJ. 2. 0-30 degrees hyperextension of 3rd MCPJ. 3. 0-30 degrees hyperextension of 4th MCPJ. 4. 0-30 degrees hyperextension of 5th MCPJ. Prison Goals Child Specialist Goals 1. Patient will be modified independent with distal upper extremity home exercise program utilizing provided written and visual instructions. 2. Patient will present with increased functional ability to incorporate dominant right hand in day-to-day life; this will be evidenced by Ana obtaining a score of 25.0 or less on the QuickDASH UE Outcome Measure. 3. Patient will present with increased functional abilities of the right upper extremity; this will be evidenced by patient's ability to return to yoga practice without complaints of pain/discomfort. Assessment/Plan Assessment Treatment Assessment Patient is a 59 year-old right hand dominant female referred to outpatient OT by PCP secondary to right hand injury . PMH: N/A. Health history form. Evaluation findings: Ana reports falling and hitting right hand onto cement . Mild edema of R hand. Denied use of splint. Reports waking up w/ R hand cramping. Denied changes in sensation. 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 QuickDASH UE Outcome Measure = 59.1. Pain Assessment Grid; 2-3 out of 10 on the Pain Assessment Grid relative to dorsal R MCP joints and pain of dorsum of hand between 2nd and 3rd digits. Dynamometer testing = avg 54.7# of force w/ L clothes wringer; avg 16.3# of force w/ R clothes wringer. Pinchometer testing = avg 17.0 # of force w/ L lateral pinch; avg 10.3# of force w/ R lateral pinch. Intrinsic tightness. Goniometer measurements were taken= R hand 2nd MCPJ 0-85; PIPJ 0-105; DIPJ 0-63. R hand 3rd MCPJ 0-75; PIPJ 0-90; DIPJ 0-60. R hand 4th MCPJ 0-72; PIPJ 0-103; DIPJ 0-63. R hand 5th MCPJ 0-90; PIPJ 0-95; DIPJ 0-65. No hyperextension of MCP joints of digits 2-5 noted . 0-0 hyperextension 2 - 5. R thumb MPJ 0-48; R IPJ 0-55. L hand 2nd MCPJ 0-95; PIPJ 0-103 ; DIPJ 0-60. L hand 3rd MCPJ 0 -95; PIPJ 0-105; DIPJ 0-65. L hand 4th MCPJ 0-95; PIPJ 0-105 ; DIPJ 0-70. L hand 5th MCPJ 0 -98; PIPJ 0-100; DIPJ 0-65. L thumb MPJ 0-60; IPJ 0-60. Hyperextension of L hand digits 2-5; 0-38 2nd digit; 0- 40 3rd digit; 0-45 4th digit; 0-45 5th digit. Outpatient OT is recommended to address the above areas and to maximize patient's ability to return to meaningful activities of daily living. Home Exercise Program Initiated passive range of motion to support hyperextension of the MCP joints of digits 2-5 left hand . Education re: contrast baths ; handout provided and discussed modification(s). Recommended strengthening of digits into extension. Handouts were provided for exercises. Plan Comment 8 weeks Treatment Frequency Once a Week Therapeutic Contents Active Range of Motion, Adaptive Equipment Education, Client Education,Cognitive Skills Development,Functional Activities,Home Exercise Program,Joint Protection, Manual Therapy,Education, Neurodevelopment Treatment, Neuromuscular Re-Education, Self-Care,Stretching/ Flexibility Activities, Therapeutic Activities, Therapeutic Exercises Sensory Assessment Sensory Profile2 Functional Wrist/Hand Scan Hand Side OT Outpatient Treatment Note - Adult Start: 05/17/20 15:58 Freq: Status: Active Protocol: Document 10/15/20 13:38 AMS (Rec: 10/15/20 13:42 AMS [id number]) OT Outpatient Adult Treatment Note Visit Information Plan of Care Dates 08/26/20-10/07/[address] [facility] Treatment Setting Outpatient Care Visit Type Note Type Discharge Summary General Information General Information Patient is a 59 year-old right hand dominant female referred to outpatient OT by PCP, Zacarias Fermin MD, secondary to right hand injury. PMH: N/A. Health history form. - Subjective Observations Patient has not been seen in the outpatient setting since and the OT POC on 10/07/20; patient was to be evaluated by UE ortho specialist. Recommend d/c from outpatient OT and re-eval as deemed appropriate. Patient/Caregiver Compliance with Home Excellent Exercise Program - Objective Objective Measurements Please refer to objective section of note for specific details. Short Term Goals GOALS D/C 1. 0-20 degrees hyperextension of 2nd MCPJ. = 0-15 degrees active MCPJ hyperext 2. 0-20 degrees hyperextension of 3rd MCPJ. = 0-10 degrees active MCPJ hyperext 3. 0-20 degrees hyperextension of 4th MCPJ. = 0-15 degrees active MCPJ hyperext 4. 0-20 degrees hyperextension of 5th MCPJ. = 0-15 degrees active MCPJ hyperext Child Specialist Goals GOALS MET Patient is modified independent with distal upper extremity home exercise program utilizing provided written and visual instructions. GOALS NOT MET 1. Patient will present with increased functional ability to incorporate dominant right hand in day-to-day life; this will be evidenced by Ana obtaining a score of 25.0 or less on the QuickDASH UE Outcome Measure. 09/03/20 = obtained a score of 36.4 2. Patient will present with increased functional abilities of the right upper extremity; this will be evidenced by patient's ability to return to yoga practice without complaints of pain/discomfort. 09/03/20 = 50% met; Moderate Difficulty indicated on QuickDASH Sports/Performing Arts Module - - Assessment Assessment of Improvement Patient has not been seen in the outpatient setting since and the OT POC on 10/07/20; patient was to be evaluated by UE ortho specialist. Recommend d/c from outpatient OT and re-eval as deemed appropriate. appropriate. Home Exercise Program Please refer to treatment section of note for specific details. - Plan Therapy Recommendations Discharge from Occupational Therapy
== END 2020-10-23 09:12 | disposition home or self-care (01) ==
LOC: OT 09:30
PROVIDERS: PCP Student in an Organized Health Care Education/Training Program; Referring Provider Student in an Organized Health Care Education/Training Program; Visit Provider Student in an Organized Health Care Education/Training Program
DX: S69.90XA Unspecified injury of unspecified wrist, hand and finger(s), initial encounter (principal); R53.1 Weakness; R27.9 Unspecified lack of coordination
CPT/HCPCS: 97035; 97110; 97112; 97140; 97165; 97530

== ENCOUNTER 2020-09-12 12:42 | Day surgery (SDC) | payer OTHER, MEDICAID, SELFPAY ==
[2020-09-12] VITALS (7 sets, daily range): BP systolic 120–141; BP diastolic 80–99; PULSE 77–112; RESP 15–20; TEMP 35.7–36.9; O2SAT 95–100; BMI 24.9
--- NOTE | 2020-09-12 | PATH_ITS ---
[facility] Accession Number: [id number] . 01 Material submitted: . PART A: colon - POLYP @ 60 CM PART B: colon - POLYPS IN CECUM . 01 Clinical history: . SDC . 02 Diagnosis: A. Colon, Polyp at 60 cm, Biopsy: Tubular adenoma. . B. Cecum, Polyps, Biopsies: Tubular adenomas. MRV 09/17/2020 1315 Local . 02 Electronically signed: . Germania Cardenas MD, Pathologist NPI- [id number] . 01 Gross description: . Part A: POLYP @ 60 CM: Received in formalin is 1 fragment(s) of preciado, soft tissue measuring 1.4 x 0.4 x 0.3 cm submitted entirely in 1 cassette(s) Part B: POLYPS IN CECUM: Received in formalin are multiple fragment(s) of preciado, soft tissue measuring 0.5 x 0.5 x 0.2 cm in aggregate submitted entirely in 1 cassette(s) /QBJ 09/14/2020 0902 Local . 02 Pathologist provided ICD-10: D12.0, D12.6 . 02 CPT . 646876, [id number] Performed at: [address] [facility] [address], [place], [place] [id number] MD Joby Hale MD Phone: [phone] Performed at: 02 [facility] [address] [place], [place] [id number] MD Germania Cardenas MD Phone: [phone]
[2020-09-12] MEDS: LACTATED RINGERS 1,000 ML 200 ML IV (12:53)
--- NOTE | 2020-09-12 13:18 | PM.HP.1 ---
History of Present Illness History of Present Illness Date Patient Seen: 09/12/20 Time Patient Seen: 13:18 Chief complaint: SDC Narrative: The patient presents for colorectal sreening. She had a previous normal colonoscopy 10 years ago. No personal or family history of colon cancer. On further history denies any recent gastrointestinal symptoms. No nausea, vomiting, abdominal pain, loss of appetite, unexplained weight loss, change in bowel habits, diarrhea, constipation, melena, hematochezia, or bright red blood per rectum. Patient History Medical History Fractures (2014) Hallux rigidus, left foot (09/2017) Hearing loss (2006) Hypertension (2017) Surgical History Anesthesia complication History of bilateral salpingectomy (06/2017) History of ear surgery (1995) History of gynecologic surgery (1982) History of unilateral oophorectomy (06/2017) Status post left foot surgery (09/2017) Family & Social History Family History Father Heart disease Hypertension Mother Cancer Diabetes mellitus Brother No problems noted. Sister Hypertension Tobacco & Substance use: Smoking Status Never smoker alcohol intake current alcohol intake frequency a few times a month Substance Use Type does not use Meds Home Medications and Allergies Home Medications Medication Instructions Recorded Confirmed Type amlodipine 2.5 mg tablet 2.5 mg PO DAILY #90 tab 05/16/20 09/12/20 Rx diphenhydramine HCl 25 mg capsule 25 mg PO BEDTIME 08/22/20 09/12/20 History Allergies Allergy/AdvReac Type Severity Reaction Status Date / Time No Known Drug Allergies Allergy Verified 08/22/20 09:41 Review of Systems Review of Systems ROS: Yes All systems reviewed with the patient and are negative except as otherwise documented Exam Vital Signs (past 8 hours): - 09/12/20 12:55 Temperature 98.4 F Pulse Rate 112 H Respiratory Rate 18 Blood Pressure 140/95 H Pulse Oximetry 97 Oxygen Delivery Method Room Air Narrative Exam Narrative: General-no acute distress, well nourished adult woman HEENT-moist mucous membranes, no scleral icterus Neck-supple, no lymphadenopathy Chest- non labored respirations, clear to auscultation bilaterally Cardiac-regular rate no peripheral edema Abdomen-soft, nontender, non distended Extremities-warm, well perfused Neurological-alert and oriented, no focal deficits Assessment & Plan Assessment & Plan narrative: The patient requires colorectal screening and colonoscopy is recommended. Technical details were discussed. Risks, benefits, alternatives explained. Risks including but not limited to myocardial infarction, aspiration, bleeding, pain, missed lesion, incomplete examination, need for further radiographic studies, colonic perforation, and need for major abdominal surgery were discussed. All questions were answered to their satisfaction, and they are in agreement with this plan.
[2020-09-12] MEDS: ONDANSETRON 4 MG/2 ML INJ IV (14:48)
--- NOTE | 2020-09-12 14:50 | P.OP.ENDO_ITS ---
Operative Date/Time/Diagnoses Date of procedure: 09/12/20 Time of procedure: 14:50 Pre-op diagnosis: personal history of colonic polyps Post-op diagnosis: same Procedure & Clinicians Study performed: colonoscopy polypectomy Same procedure as scheduled: Yes Indications: 59F last colonoscopy 10 yrs ago here for routine screening exam Surgeon: Buddy Grey Procedure Notes Procedure in detail: Medications: Conscious sedation using *7mg IV midazolam and *300mcg IV of fentanyl The history and physical was performed/updated and the patient is ASA class is 2. The procedure was discussed in detail with the patient. Potential risks complications including infection, bleeding, missed diagnosis, perforation, need for surgery, and were explained. Their questions were answered and informed consent was obtained. Patient was brought to the procedure room and placed standard monitoring equipment. The patient's vital signs were monitored continuously throughout the entire procedure. Prior to starting time-out was performed. The patient was placed in the left lateral recumbent position. Procedural sedation was administered. Examination began with a thorough inspection of the perianal area there was no evidence of fissures, fistulae, external hemorrhoids or cutaneous malignancy. The colonoscopy scope was then placed into the anal canal and was advanced to the cecum, which was identified by the ileocecal valve, the appe ndiceal orifice and the confluence of the taenia. The scope was then slowly withdrawn examining colon thoroughly in all directions, irrigating it of any residual stool. 5 mm polyp within the transverse colon at 60 cm removed with cold snare 5 mm polyp within the cecum removed with cold snare Lazcano diverticulosis The patient tolerated the procedure well. They will be discharged once criteria are met. The prep was of good/excellent quality. The withdrawl time was 9 minutes. The sedation time was 40 minutes. Specimen(s): other (60 cm and cecum) Complications: none Impression: Two polyps removed Post-procedure Recommendations: Colonscopy in 5 years Disposition: same day surgery
[2020-09-12] MEDS: MIDAZOLAM 5 MG/5 ML VIAL IV (14:52)
[2020-09-12] MEDS: fentaNYL 250 MCG/5 ML INJ IV (14:52)
--- NOTE | 2020-09-12 15:38 | SUR.PHASEII ---
pt became nauseated while attempting to get dressed. pt had approximately 100 cc of clear emesis. pt reports after emesis I feel better.
== END 2020-09-12 15:45 | disposition home or self-care (01) ==
PROVIDERS: PCP Student in an Organized Health Care Education/Training Program; Referring Provider Student in an Organized Health Care Education/Training Program; Visit Provider Surgery
PROC: 0DJD8ZZ Inspection of Lower Intestinal Tract, Via Natural or Artificial Opening Endoscopic (ICD-10-PCS; CPT 45378; principal; 2020-09-12 13:45)
DX: Z12.11 Encounter for screening for malignant neoplasm of colon (principal); Z86.010 Personal history of colon polyps; I10 Essential (primary) hypertension; K57.30 Diverticulosis of large intestine without perforation or abscess without bleeding; D12.0 Benign neoplasm of cecum; D12.6 Benign neoplasm of colon, unspecified
CPT/HCPCS: 45385; 99152; 99153; J2250; J2405; J3010

== ENCOUNTER → 2020-10-16 12:31 | Outpatient (CLI) | payer OTHER, MEDICAID, SELFPAY ==
[2020-10-16] MEDS: COVID-19 VACC #1, MRNA(MOD) 100 MCG/0.5 ML VIAL IM (12:38)
== END ==
PROVIDERS: PCP Student in an Organized Health Care Education/Training Program; Visit Provider Internal Medicine
DX: Z23 Encounter for immunization (principal)
CPT/HCPCS: 0011A; 91301

== ENCOUNTER → 2020-11-13 12:39 | Outpatient (CLI) | payer OTHER, MEDICAID, SELFPAY ==
[2020-11-13] MEDS: COVID-19 VACC #2, MRNA(MOD) 100 MCG/0.5 ML VIAL IM (12:47)
== END ==
PROVIDERS: PCP Student in an Organized Health Care Education/Training Program; Visit Provider Internal Medicine
DX: Z23 Encounter for immunization (principal)
CPT/HCPCS: 0012A; 91301

== ENCOUNTER → 2021-01-10 10:04 | Outpatient (CLI) | payer OTHER, MEDICAID, SELFPAY ==
--- NOTE | 2021-01-10 10:05 | DI.RAD.S_ITS ---
PROCEDURE: XR ANKLE RT MIN 3V INDICATIONS: Ankle injury TECHNIQUE: 3 views of the ankle were acquired. COMPARISON: None. FINDINGS: Bones: No fractures or dislocations. Ankle mortise is normally aligned. No suspicious bony lesions. Soft tissues: No tibiotalar joint effusion. Achilles tendon appears normal. IMPRESSION: Negative examination. If the patient's pain or other symptoms persist, consider further evaluation with MRI Dictated by: Robert Mosre M.D. on 01/10/2021 at 10:56 Approved by: Robert Moser M.D. on 01/10/2021 at 10:57
--- NOTE | 2021-01-10 10:05 | DI.RAD.S_ITS ---
PROCEDURE: XR FOOT RT MIN 3V INDICATIONS: Foot injury TECHNIQUE: 3 views of the foot were acquired. COMPARISON: None. FINDINGS: Bones: No fracture identified. Scattered degenerative subchondral sclerosis and spurring. Severe 1st MTP osteoarthritis. Soft tissues: No tibiotalar joint effusion. Achilles tendon appears normal. IMPRESSION: No acute fracture identified. Severe 1st MTP osteoarthritis. If the patient's pain or other symptoms persist, consider further evaluation with MRI Dictated by: Robert Moser M.D. on 01/10/2021 at 10:57 Approved by: Robert Moser M.D. on 01/10/2021 at 10:58
== END ==
PROVIDERS: PCP Student in an Organized Health Care Education/Training Program; Referring Provider Physician Assistant; Visit Provider Physician Assistant
DX: S99.921A Unspecified injury of right foot, initial encounter (principal); S99.911A Unspecified injury of right ankle, initial encounter; M19.071 Primary osteoarthritis, right ankle and foot; X58.XXXA Exposure to other specified factors, initial encounter
CPT/HCPCS: 73610; 73630

== ENCOUNTER → 2021-10-24 11:39 | Outpatient (CLI) | payer OTHER, MEDICAID, SELFPAY ==
--- NOTE | 2021-10-24 | DI.MG.S_ITS ---
BILATERAL DIGITAL SCREENING MAMMOGRAM 3D/2D WITH CAD: 10/24/2021 CLINICAL: Routine screening. Comparison is made to exams dated: 08/07/2020 mammogram, 04/08/2019 mammogram - [facility], and 06/05/2017 mammogram - [facility]. There are scattered fibroglandular elements in both breasts. Current study was also evaluated with a Computer Aided Detection (CAD) system. No significant masses, calcifications, or other findings are seen in either breast. There has been no significant interval change. IMPRESSION: NEGATIVE There is no mammographic evidence of malignancy. A 1 year screening mammogram is recommended. This exam was interpreted at Station ID: [id number]. NOTE: For mammograms, a report in lay terms will be sent to the patient. Approximately 15% of breast malignancies will not be visualized mammographically. In the management of a palpable breast mass, a negative mammogram must not discourage biopsy of a clinically suspicious lesion. Electronically Signed By: Rajesh Solis acr/penrad:10/24/2021 12:52:51 letter sent: Normal Exam ACR BI-RADS Category 1: Negative [id number]
== END ==
PROVIDERS: PCP Student in an Organized Health Care Education/Training Program; Referring Provider Student in an Organized Health Care Education/Training Program; Visit Provider Student in an Organized Health Care Education/Training Program
DX: Z12.31 Encounter for screening mammogram for malignant neoplasm of breast (principal)
CPT/HCPCS: 77063; 77067

== ENCOUNTER 2022-04-15 10:47 | Observation (INO) | payer OTHER, MEDICAID, SELFPAY ==
[2022-04-15] VITALS (11 sets, daily range): BP systolic 109–128; BP diastolic 63–76; PULSE 101–108; RESP 18–20; TEMP 36.9–37.2; O2SAT 95–100; BMI 22.3
[2022-04-15 11:53] LABS: INR 2.1 (0.9-1.3); Prothrombin Time 23.9 SECONDS (10.1-12.7)
[2022-04-15 11:54] LABS: Hematocrit 33.6 % (36-46); Hemoglobin 11.6 g/dL (12.0-16.0); Mean Corpuscular HGB Conc 34.5 % (30-36); Mean Corpuscular Hemoglobin 36.8 PG (26-34); Mean Corpuscular Volume 106.7 fL (80-100); Platelet Count 317 X10^3/uL (150-400); Red Blood Cell Count 3.15 X10^6/uL (4.0-5.2); Red Cell Distribution Width 14.3 % (11.6-14.8); White Blood Cell Count 26.7 X10^3/uL (4.5-11.0)
[2022-04-15 11:55] LABS: Add Manual Diff / Slide Review YES; PTT Partial Thromboplastin Tim 42 SECONDS (26-36)
[2022-04-15 11:56] LABS: Ammonia (NH3) 28 umol/L (9-30)
[2022-04-15 11:57] LABS: Alanine Aminotransferase 35 IU/L (<35); Albumin 3.3 g/dL (3.5-5.0); Albumin Globulin Ratio 0.7 (1.0-2.8); Alkaline Phosphatase 312 U/L (38-126); Aspartate Aminotransferase 173 IU/L (14-36); BUN Creatinine Ratio 4.7 (6-22); Bilirubin Total 5.3 mg/dL (0.2-1.3); Blood Urea Nitrogen 2 mg/dL (7-17); Calcium 8.3 mg/dL (8.4-10.2); Carbon Dioxide 28 mmol/L (22-32); Chloride 100 mmol/L (98-107); Estimated Glomerular Filt Rate > 60 mL/min (>60); Globulin 4.7 g/dL (1.7-4.1); Glucose 116 mg/dL (80-110); HEMOLYSIS 21 (0-50); Lipase 131 U/L (23-300); Potassium 3.1 mmol/L (3.4-5.1); Sodium 137 mmol/L (137-145)
[2022-04-15 12:17] LABS: COVID19 -Nasal RAPID Negative (Negative)
[2022-04-15 12:27] LABS: Neutrophils Absolute Manual 23496 /uL (3000-5900); Total Cells Counted 100
[2022-04-15 12:31] LABS: Macrocytosis 1+
--- NOTE | 2022-04-15 16:53 | DI.US.S_ITS ---
PROCEDURE: US ABDOMEN COMPLETE INDICATIONS: JAUNDICE AND LIVER FAILURE TECHNIQUE: Real-time scanning was performed of the abdominal and retroperitoneal organs, with image documentation. COMPARISON: None. FINDINGS: Liver: The liver demonstrates normal size. The liver demonstrates generalized prominently increased echogenicity. This decreases ultrasound sensitivity for detection of hepatic masses. The main portal vein demonstrates normal size and demonstrates normal appearing, hepatopetal flow. Gallbladder: Apparent gallstones are seen within the gallbladder lumen, with the largest measuring up to 7 mm. The gallbladder is partially contracted, which limits its evaluation. The gallbladder wall is not thickened, measuring 3 mm or less. No specific pericholecystic fluid is seen. The sonographic Shoemaker sign is negative. Biliary ducts: Intrahepatic bile ducts are non-dilated. Extrahepatic bile duct caliber measures 7 mm. Normal is 6-7 mm or less in diameter, or 10 mm or less post-cholecystectomy. Pancreas: The pancreas is not well seen. Spleen: The spleen is mildly enlarged, measuring 13 5 cm in greatest length, with a volume 585 cc. Kidneys: Kidneys are normal in size and echotexture. Right kidney measures 9.5 cm long; left kidney measures 10.6 cm long. No hydronephrosis or nephrolithiasis. No solid masses. Aorta: Visualized aorta is normal in caliber at less than 3 cm. Iliacs: Proximal common iliac arteries are normal in caliber at less than 2.5 cm. IVC: IVC is not well seen. Miscellaneous: No free abdominal fluid. IMPRESSION: Prominently fatty liver. Apparent gallstones are seen, without additional sonographic signs of cholecystitis. Common bile duct measures at the upper limits of normal at 7 mm. Mildly enlarged spleen. Dictated by: William Santos M.D. on 04/15/2022 at 16:55 Approved by: William Santos M.D. on 04/15/2022 at 16:56
--- NOTE | 2022-04-15 16:56 | PC.NURSE ---
Patient called on red phone requesting IV to be removed. This RN reviewed labs and asked Dr Aguilar to review labs to facilitate imaging. Tressa is agreeable to waiting and continuing ER evaluation.
--- NOTE | 2022-04-15 17:35 | PC.NURSE ---
Pt back from US and in room 4
--- NOTE | 2022-04-15 18:32 | ED.NAVMDI ---
HPI - Nausea/Vomiting/Diarrhea General Chief complaint: Nausea/Vomiting/Diarrhea Stated complaint: Eyes are yellow, body aches, nausea, SOB, Fatigue Time Seen by Provider: 04/15/22 16:53 Source: patient Mode of arrival: Ambulatory History of Present Illness HPI Narrative: 61-year-old female nonsmoker with history of hypertension presents with family and the chief complaint of painless jaundice, fatigue and nausea over the past few days. She states that in the big picture she is had nausea and some epigastric burning over the past few months and had an EGD at [facility] that demonstrated gastritis. She has had no pain and admits to 20 lb weight loss that is unexplained over this time frame. She is had no fever or chills. She denies any runny nose, sore throat or cough. She does have a skin condition that tends to make her itchy but states that she is been much more itchy than normal the past few days Related Data Home Medications Medication Instructions Recorded Confirmed cetirizine 10 mg tablet (Zyrtec) 10 mg PO DAILY PRN 01/10/21 01/08/22 clobetasol 0.05 % topical cream 1 applic topical DAILY 11/10/21 01/08/22 Previous Rx's Medication Instructions Recorded amlodipine 2.5 mg tablet 2.5 mg PO DAILY #90 tabs 02/17/22 hydroxyzine HCl 25 mg tablet 12.5 - 50 mg PO TID PRN itching 03/12/22 #30 tabs amoxicillin 875 mg-potassium 1 tab PO BID 5 days #10 tabs 04/16/22 clavulanate 125 mg tablet ondansetron 4 mg disintegrating 4 mg PO Q8H PRN nausea and 04/16/22 tablet vomiting 30 days #30 tabs Allergies Allergy/AdvReac Type Severity Reaction Status Date / Time No Known Drug Allergies Allergy Verified 04/15/22 11:27 Review of Systems Review of Systems Narrative: GENERAL: See HPI HEENT: Denies sinus pain, ear pain, sore throat, difficulty swallowing, dizziness. RESPIRATORY: Denies dyspnea, cough, wheezing, hemoptysis, sputum. CARDIOVASCULAR: Denies chest pain, palpitations, orthopnea, edema, GASTROINTESTINAL: See HPI : Denies dysuria, frequency, incontinence, hematuria, urinary retention. MUSCULOSKELETAL: denies weakness, joint pain, or bony pain SKIN: See HPI NEUROLOGIC: Denies weakness, headache, numbness, change in speech, confusion, seizures, incoordination. PSYCHIATRIC: No concerning psychosocial issues. 12 point review of systems is negative except for those stated above Patient History Medical History Actinic keratoses Actinic skin damage Fractures (2014) Hallux rigidus, left foot (09/2017) Hand injury Hearing loss (2006) Hypertension (2017) Pruritic rash Surgical History Anesthesia complication History of bilateral salpingectomy (06/2017) History of ear surgery (1995) History of gynecologic surgery (1982) History of unilateral oophorectomy (06/2017) Status post left foot surgery (09/2017) Family History Father Heart disease Hypertension Mother Cancer Diabetes mellitus Brother No problems noted. Sister Hypertension Social History household members: other Smoking Status: Never smoker alcohol intake: current substance use type: does not use Smoking Status: Never smoker alcohol intake frequency: 3 or more drinks per day Substance Use Type: does not use Exam Narrative Exam Narrative: GENERAL: [61] year old patient appears stated age. Well-developed patient, in mild distress. HEAD: Atraumatic. Normocephalic. EYES: Pupils equal round and reactive. Extraocular motions intact. scleral icterus. No injection or drainage. ENT: Nose without bleeding, purulent drainage. Throat without erythema, tonsillar hypertrophy or exudate. Airway patent. NECK: Trachea midline. Non tender CARDIOVASCULAR: Regular rate and rhythm without murmurs, gallops, or rubs. RESPIRATORY: Clear to auscultation. Breath sounds equal bilaterally. No wheezes, rales, or rhonchi. GASTROINTESTINAL: Abdomen soft, non-tender, nondistended. EXTREMITIES: No edema or joint tenderness. BACK: Nontender without deformity or crepitance. No flank tenderness. NEURO: AOx3. SKIN: Jaundice No rash or erythema of visible areas Initial Vital Signs Initial Vital Signs: Vital Signs Temperature 98.9 F 04/15/22 11:27 Pulse Rate 101 H 04/15/22 11:27 Respiratory Rate 18 04/15/22 11:27 Blood Pressure 127/74 04/15/22 11:27 Pulse Oximetry 100 04/15/22 11:27 Oxygen Delivery Method 04/15/22 11:27 Course Course Course Narrative: MELD Score (Model For End-Stage Liver Disease) (12 and older) from [facility] on 04/15/2022 All calculations should be rechecked by clinician prior to use RESULT SUMMARY: 21 points MELD Score (2016)* 19.6% Estimated 3-Month Mortality INPUTS: Dialysis at least twice in the past week ?> 0 = No Creatinine ?> 0.43 mg/dL Bilirubin ?> 5.3 mg/dL INR ?> 2.1 Sodium ?> 137 mEq/L Orders Ordered: Discontinued Medications Acetaminophen (Acetaminophen 325 Mg Tablet) 650 mg PO Q6HR PRN PRN Reason: Fever/Mild Pain (1-3) Enoxaparin Sodium (Enoxaparin 40 Mg/0.4 Ml Syringe) 40 mg SUBCUT DAILY [facility] Last Admin: 04/16/22 10:13 Dose: 40 mg Documented By: HCW Folic Acid (Folic Acid 1 Mg Tablet) 1 mg PO DAILY [facility] Last Admin: 04/16/22 10:13 Dose: 1 mg Documented By: HCW Sodium Chloride (Normal Saline 0.9%) 1,641 mls @ 547 mls/hr 30 ml/kg infuse over 3 hr (1641 ml) IV NOW ONE Stop: 04/15/22 21:38 Last Infusion: 04/15/22 22:05 Dose: 0 mls/hr Documented By: Admin: 04/15/22 19:02 Dose: 547 mls/hr Documented By: XIOMARA Piperacillin Sod/Tazobactam (Sod 4.5 gm/ Sodium Chloride) 100 mls @ 200 mls/hr IV NOW ONE Stop: 04/15/22 18:40 Last Infusion: 04/15/22 20:33 Dose: 0 mls/hr Documented By: Infusion: 04/15/22 19:48 Dose: 200 mls/hr Documented By: Infusion: 04/15/22 19:10 Dose: 0 mls/hr Documented By: Admin: 04/15/22 19:01 Dose: 200 mls/hr Documented By: AMU Piperacillin Sod/Tazobactam (Sod 3.375 gm/ Sodium Chloride) 100 mls @ 25 mls/hr IV Q8H [facility] Last Admin: 04/16/22 14:52 Dose: Not Given Documented By: Infusion: 04/16/22 08:52 Dose: 25 mls/hr Documented By: Admin: 04/16/22 04:52 Dose: 25 mls/hr Documented By: TANIA Sodium Chloride (Normal Saline 0.9%) 250 mls @ 21 mls/hr IV Q24H PRN PRN Reason: Flush Last Admin: 04/16/22 04:52 Dose: 21 mls/hr Documented By: TANIA Lorazepam (Lorazepam 1 Mg Tablet) 0 mg PO CIWAPRN PRN; Protocol PRN Reason: Alcohol Withdrawal Multivitamins (Multivitamin 1 Tablet) 1 tab PO DAILY [facility] Last Admin: 04/16/22 10:13 Dose: 1 tab Documented By: HCW Home Medication (Storage) 0 each PO PRN PRN PRN Reason: HOME MEDICATION STORAGE Ondansetron HCl (Ondansetron 4 Mg/2 Ml Inj) 4 mg IV Q8HR PRN PRN Reason: Nausea And Vomiting Last Admin: 04/16/22 12:05 Dose: 4 mg Documented By: ROSIBEL Pantoprazole Sodium (Pantoprazole Dr 40 Mg Tablet) 40 mg PO 0700 [facility] Last Admin: 04/16/22 06:53 Dose: 40 mg Documented By: TANIA Potassium Chloride (Potassium Chloride 20 Meq Tab) 40 meq PO NOW ONE Stop: 04/16/22 04:22 Last Admin: 04/16/22 04:53 Dose: 40 meq Documented By: TANIA Potassium Chloride (Potassium Chloride 20 Meq Tab) 40 meq PO Q6H [facility] Stop: 04/16/22 16:46 Last Admin: 04/16/22 10:53 Dose: 40 meq Documented By: HCW Sodium Chloride (Sodium Chloride 0.9% Flush) 10 ml IV PRN PRN PRN Reason: Flush Last Admin: 04/16/22 05:33 Dose: 10 ml Documented By: TANIA Sodium Chloride (Sodium Chloride 0.9% Flush) 10 ml IV BID [facility] Last Admin: 04/16/22 10:13 Dose: Not Given Documented By: HCW Thiamine HCl (Thiamine 100 Mg Tablet) 100 mg PO DAILY [facility] Stop: 04/19/22 09:01 Last Admin: 04/16/22 10:13 Dose: 100 mg Documented By: HCW Vital Signs Vital signs: Vital Signs - 8 hr 04/15/22 22:30 04/15/22 22:30 04/15/22 23:06 Pulse Rate 103 H 107 H Blood Pressure 120/69 Pulse Oximetry 95 95 04/15/22 23:30 04/16/22 00:00 04/16/22 00:30 Pulse Rate 105 H 102 H 104 H Blood Pressure Pulse Oximetry 96 93 94 MDM - Nausea/Vomiting/Diarrhea Lab Data Result diagrams: 04/16/22 03:50 04/16/22 03:50 Labs: Lab Results 04/15/22 04/15/22 04/15/22 Range/Units 11:30 11:30 11:30 WBC 26.7 H (4.5-11.0) X10^3/uL RBC 3.15 L (4.0-5.2) X10^6/uL Hgb 11.6 L (12.0-16.0) g/dL Hct 33.6 L (36-46) % MCV 106.7 H (80-100) fL MCH 36.8 H (26-34) PG MCHC 34.5 (30-36) % RDW 14.3 (11.6-14.8) % Plt Count 317 (150-400) X10^3/uL Neut % (Auto) Not Reportable Lymph % (Auto) Not Reportable [place] % (Auto) Not Reportable Eos % (Auto) Not Reportable Baso % (Auto) Not Reportable Lymph # (Auto) Not Reportable [place] # (Auto) Not Reportable Baso # (Auto) Not Reportable Total Counted 100 Seg Neutrophils % 85.0 H (38-70) % Band Neutrophils % 3.0 (3-7) % Lymphocytes % (Manual) 7.0 L (25-45) % Monocytes % (Manual) 4.0 (2-11) % Eosinophils % (Manual) 1.0 L (2-4) % Neutrophils # (Manual) 32643 H (0275-8311) /uL RBC Morphology See below Macrocytosis 1+ H PT 23.9 H (10.1-12.7) SECONDS INR 2.1 H (0.9-1.3) APTT 42 H (26-36) SECONDS Sodium 137 (137-145) mmol/L Potassium 3.1 L (3.4-5.1) mmol/L Chloride 100 (98-107) mmol/L Carbon Dioxide 28 (22-32) mmol/L BUN 2 L (7-17) mg/dL Creatinine 0.43 L (0.52-1.04) mg/dL Estimated GFR > 60 (>60) mL/min BUN/Creatinine Ratio 4.7 L (6-22) Glucose 116 H (80-110) mg/dL Lactate (0.7-2.1) mmol/L Calcium 8.3 L (8.4-10.2) mg/dL Total Bilirubin 5.3 H (0.2-1.3) mg/dL AST 173 H (14-36) IU/L ALT 35 H (<35) IU/L Alkaline Phosphatase 312 H (38-126) U/L Ammonia (9-30) umol/L Total Protein 8.0 (6.3-8.2) g/dL Albumin 3.3 L (3.5-5.0) g/dL Globulin 4.7 H (1.7-4.1) g/dL Albumin/Globulin Ratio 0.7 L (1.0-2.8) Lipase 131 (23-300) U/L Acetaminophen (10-30) ug/mL Ethyl Alcohol ( - 10) mg/dL A. baumannii (PCR) (Not Detect) Jeni albicans (PCR) (Not Detect) C. glabrata (PCR) (Not Detect) C. krusei (PCR) (Not Detect) C. parapsilosis (PCR) (Not Detect) C. tropicalis (PCR) (Not Detect) SARS-CoV-2 (PCR) (Negative) Enterobacteriac sp PCR (Not Detect) E. cloacae complex PCR (Not Detect) Enterococcus sp PCR (Not Detect) E. coli (PCR) (Not Detect) H. influenzae (PCR) (Not Detect) Hepatitis A IgM Ab (Negative) Hep Bs Antigen (Negative) Hep B Core IgM Ab (Negative) Hepatitis C Antibody (0.0-0.9) s/co ratio Hep C Ab Signal/Cutoff (.) Klebsiella oxytoca PCR (Not Detect) Klebsiella pneumoniae (Not Detect) List. monocytogenes PCR (Not Detect) N. meningitidis (PCR) (Not Detect) Proteus species (PCR) (Not Detect) Serratia marcescens PCR (Not Detect) Staphylococcus sp PCR (Not Detect) Staph aureus (PCR) (Not Detect) mecA-Methicil Res Gene Streptococcus sp PCR (Not Detect) Group A Strep (PCR) (Not Detect) Strep agalactiae (PCR) (Not Detect) Strep pneumoniae (PCR) (Not Detect) P. aeruginosa (PCR) (Not Detect) Margaret/B-Vanco Res Genes KPC-Carbap Res Gene PCR 04/15/22 04/15/22 04/15/22 Range/Units 11:30 11:30 18:15 WBC (4.5-11.0) X10^3/uL RBC (4.0-5.2) X10^6/uL Hgb (12.0-16.0) g/dL Hct (36-46) % MCV (80-100) fL MCH (26-34) PG MCHC (30-36) % RDW (11.6-14.8) % Plt Count (150-400) X10^3/uL Neut % (Auto) Lymph % (Auto) [place] % (Auto) Eos % (Auto) Baso % (Auto) Lymph # (Auto) [place] # (Auto) Baso # (Auto) Total Counted Seg Neutrophils % (38-70) % Band Neutrophils % (3-7) % Lymphocytes % (Manual) (25-45) % Monocytes % (Manual) (2-11) % Eosinophils % (Manual) (2-4) % Neutrophils # (Manual) (2993-2781) /uL RBC Morphology Macrocytosis PT (10.1-12.7) SECONDS INR (0.9-1.3) APTT (26-36) SECONDS Sodium (137-145) mmol/L Potassium (3.4-5.1) mmol/L Chloride (98-107) mmol/L Carbon Dioxide (22-32) mmol/L BUN (7-17) mg/dL Creatinine (0.52-1.04) mg/dL Estimated GFR (>60) mL/min BUN/Creatinine Ratio (6-22) Glucose (80-110) mg/dL Lactate (0.7-2.1) mmol/L Calcium (8.4-10.2) mg/dL Total Bilirubin (0.2-1.3) mg/dL AST (14-36) IU/L ALT (<35) IU/L Alkaline Phosphatase (38-126) U/L Ammonia 28 (9-30) umol/L Total Protein (6.3-8.2) g/dL Albumin (3.5-5.0) g/dL Globulin (1.7-4.1) g/dL Albumin/Globulin Ratio (1.0-2.8) Lipase (23-300) U/L Acetaminophen < 10 (10-30) ug/mL Ethyl Alcohol < 10 ( - 10) mg/dL A. baumannii (PCR) (Not Detect) Jeni albicans (PCR) (Not Detect) C. glabrata (PCR) (Not Detect) C. krusei (PCR) (Not Detect) C. parapsilosis (PCR) (Not Detect) C. tropicalis (PCR) (Not Detect) SARS-CoV-2 (PCR) Negative (Negative) Enterobacteriac sp PCR (Not Detect) E. cloacae complex PCR (Not Detect) Enterococcus sp PCR (Not Detect) E. coli (PCR) (Not Detect) H. influenzae (PCR) (Not Detect) Hepatitis A IgM Ab (Negative) Hep Bs Antigen (Negative) Hep B Core IgM Ab (Negative) Hepatitis C Antibody (0.0-0.9) s/co ratio Hep C Ab Signal/Cutoff (.) Klebsiella oxytoca PCR (Not Detect) Klebsiella pneumoniae (Not Detect) List. monocytogenes PCR (Not Detect) N. meningitidis (PCR) (Not Detect) Proteus species (PCR) (Not Detect) Serratia marcescens PCR (Not Detect) Staphylococcus sp PCR (Not Detect) Staph aureus (PCR) (Not Detect) mecA-Methicil Res Gene Streptococcus sp PCR (Not Detect) Group A Strep (PCR) (Not Detect) Strep agalactiae (PCR) (Not Detect) Strep pneumoniae (PCR) (Not Detect) P. aeruginosa (PCR) (Not Detect) Margaret/B-Vanco Res Genes KPC-Carbap Res Gene PCR 04/15/22 04/15/22 04/15/22 Range/Units 18:15 18:15 18:15 WBC (4.5-11.0) X10^3/uL RBC (4.0-5.2) X10^6/uL Hgb (12.0-16.0) g/dL Hct (36-46) % MCV (80-100) fL MCH (26-34) PG MCHC (30-36) % RDW (11.6-14.8) % Plt Count (150-400) X10^3/uL Neut % (Auto) Lymph % (Auto) [place] % (Auto) Eos % (Auto) Baso % (Auto) Lymph # (Auto) [place] # (Auto) Baso # (Auto) Total Counted Seg Neutrophils % (38-70) % Band Neutrophils % (3-7) % Lymphocytes % (Manual) (25-45) % Monocytes % (Manual) (2-11) % Eosinophils % (Manual) (2-4) % Neutrophils # (Manual) (1044-2797) /uL RBC Morphology Macrocytosis PT (10.1-12.7) SECONDS INR (0.9-1.3) APTT (26-36) SECONDS Sodium (137-145) mmol/L Potassium (3.4-5.1) mmol/L Chloride (98-107) mmol/L Carbon Dioxide (22-32) mmol/L BUN (7-17) mg/dL Creatinine (0.52-1.04) mg/dL Estimated GFR (>60) mL/min BUN/Creatinine Ratio (6-22) Glucose (80-110) mg/dL Lactate 1.9 (0.7-2.1) mmol/L Calcium (8.4-10.2) mg/dL Total Bilirubin (0.2-1.3) mg/dL AST (14-36) IU/L ALT (<35) IU/L Alkaline Phosphatase (38-126) U/L Ammonia 64 H (9-30) umol/L Total Protein (6.3-8.2) g/dL Albumin (3.5-5.0) g/dL Globulin (1.7-4.1) g/dL Albumin/Globulin Ratio (1.0-2.8) Lipase (23-300) U/L Acetaminophen (10-30) ug/mL Ethyl Alcohol ( - 10) mg/dL A. baumannii (PCR) (Not Detect) Jeni albicans (PCR) (Not Detect) C. glabrata (PCR) (Not Detect) C. krusei (PCR) (Not Detect) C. parapsilosis (PCR) (Not Detect) C. tropicalis (PCR) (Not Detect) SARS-CoV-2 (PCR) (Negative) Enterobacteriac sp PCR (Not Detect) E. cloacae complex PCR (Not Detect) Enterococcus sp PCR (Not Detect) E. coli (PCR) (Not Detect) H. influenzae (PCR) (Not Detect) Hepatitis A IgM Ab Negative (Negative) Hep Bs Antigen Negative (Negative) Hep B Core IgM Ab Negative (Negative) Hepatitis C Antibody <0.1 (0.0-0.9) s/co ratio Hep C Ab Signal/Cutoff Comment (.) Klebsiella oxytoca PCR (Not Detect) Klebsiella pneumoniae (Not Detect) List. monocytogenes PCR (Not Detect) N. meningitidis (PCR) (Not Detect) Proteus species (PCR) (Not Detect) Serratia marcescens PCR (Not Detect) Staphylococcus sp PCR (Not Detect) Staph aureus (PCR) (Not Detect) mecA-Methicil Res Gene Streptococcus sp PCR (Not Detect) Group A Strep (PCR) (Not Detect) Strep agalactiae (PCR) (Not Detect) Strep pneumoniae (PCR) (Not Detect) P. aeruginosa (PCR) (Not Detect) Margaret/B-Vanco Res Genes KPC-Carbap Res Gene PCR 04/15/22 Range/Units 18:15 WBC (4.5-11.0) X10^3/uL RBC (4.0-5.2) X10^6/uL Hgb (12.0-16.0) g/dL Hct (36-46) % MCV (80-100) fL MCH (26-34) PG MCHC (30-36) % RDW (11.6-14.8) % Plt Count (150-400) X10^3/uL Neut % (Auto) Lymph % (Auto) [place] % (Auto) Eos % (Auto) Baso % (Auto) Lymph # (Auto) [place] # (Auto) Baso # (Auto) Total Counted Seg Neutrophils % (38-70) % Band Neutrophils % (3-7) % Lymphocytes % (Manual) (25-45) % Monocytes % (Manual) (2-11) % Eosinophils % (Manual) (2-4) % Neutrophils # (Manual) (7112-1129) /uL RBC Morphology Macrocytosis PT (10.1-12.7) SECONDS INR (0.9-1.3) APTT (26-36) SECONDS Sodium (137-145) mmol/L Potassium (3.4-5.1) mmol/L Chloride (98-107) mmol/L Carbon Dioxide (22-32) mmol/L BUN (7-17) mg/dL Creatinine (0.52-1.04) mg/dL Estimated GFR (>60) mL/min BUN/Creatinine Ratio (6-22) Glucose (80-110) mg/dL Lactate (0.7-2.1) mmol/L Calcium (8.4-10.2) mg/dL Total Bilirubin (0.2-1.3) mg/dL AST (14-36) IU/L ALT (<35) IU/L Alkaline Phosphatase (38-126) U/L Ammonia (9-30) umol/L Total Protein (6.3-8.2) g/dL Albumin (3.5-5.0) g/dL Globulin (1.7-4.1) g/dL Albumin/Globulin Ratio (1.0-2.8) Lipase (23-300) U/L Acetaminophen (10-30) ug/mL Ethyl Alcohol ( - 10) mg/dL A. baumannii (PCR) Not detected (Not Detect) Jeni albicans (PCR) Not detected (Not Detect) C. glabrata (PCR) Not detected (Not Detect) C. krusei (PCR) Not detected (Not Detect) C. parapsilosis (PCR) Not detected (Not Detect) C. tropicalis (PCR) Not detected (Not Detect) SARS-CoV-2 (PCR) (Negative) Enterobacteriac sp PCR Not detected (Not Detect) E. cloacae complex PCR Not detected (Not Detect) Enterococcus sp PCR Not detected (Not Detect) E. coli (PCR) Not detected (Not Detect) H. influenzae (PCR) Not detected (Not Detect) Hepatitis A IgM Ab (Negative) Hep Bs Antigen (Negative) Hep B Core IgM Ab (Negative) Hepatitis C Antibody (0.0-0.9) s/co ratio Hep C Ab Signal/Cutoff (.) Klebsiella oxytoca PCR Not detected (Not Detect) Klebsiella pneumoniae Not detected (Not Detect) List. monocytogenes PCR Not detected (Not Detect) N. meningitidis (PCR) Not detected (Not Detect) Proteus species (PCR) Not detected (Not Detect) Serratia marcescens PCR Not detected (Not Detect) Staphylococcus sp PCR Not detected (Not Detect) Staph aureus (PCR) Not detected (Not Detect) mecA-Methicil Res Gene Not Reportable Streptococcus sp PCR Not detected (Not Detect) Group A Strep (PCR) Not detected (Not Detect) Strep agalactiae (PCR) Not detected (Not Detect) Strep pneumoniae (PCR) Not detected (Not Detect) P. aeruginosa (PCR) Not detected (Not Detect) Margaret/B-Vanco Res Genes Not Reportable KPC-Carbap Res Gene PCR Not Reportable Imaging Data US - abdomen: Radiologist's Impression: Ana Tyler??61??F??1960 ? Allergy/Adv: No Known Drug Allergies Close Chest/Abdomen/Pelvis CT (Signed) Joby Parker - 04/15/22 Abdomen MRI (Signed) Joby Parker - 04/15/22 Abdomen Ultrasound (Signed) William Santos - 04/15/22 Mammogram Screening (Signed) Rajesh Solis - 10/24/21 Foot X-Ray (Signed) Robert Moser - 01/10/21 Ankle X-Ray (Signed) Robert Moser - 01/10/21 Telemetry Strips 09/12/20 Mammogram Screening (Signed) Ian Sims - 08/07/20 Hand X-Ray (Signed) Rudy Garay - 02/22/20 Mammogram Screening (Signed) Gemma Isbell - 04/08/19 Launch?[place] [id number] Ultrasound Report Signed Patient: Ana Tyler MR#: [id number] : 1960 Acct:[id number] Age/Sex: 61 / F Date of Service: 04/15/22 Loc: Accession Number: [id number] ?? Procedure: US abdomen complete Ordering Provider: Shagufta Aguilar D.O. PROCEDURE:? US ABDOMEN COMPLETE ? INDICATIONS:? JAUNDICE AND LIVER FAILURE ? TECHNIQUE:? Real-time scanning was performed of the abdominal and retroperitoneal organs, with image documentation.? ? COMPARISON:? None. ? FINDINGS:? ? Liver:? The liver demonstrates normal size. The liver demonstrates generalized prominently increased echogenicity. This decreases ultrasound sensitivity for detection of hepatic masses.? The main portal vein demonstrates normal size and demonstrates normal appearing, hepatopetal flow.? ? Gallbladder:? Apparent gallstones are seen within the gallbladder lumen, with the largest measuring up to 7 mm.? The gallbladder is partially contracted, which limits its evaluation.? The gallbladder wall is not thickened, measuring 3 mm or less.? No specific pericholecystic fluid is seen.? The sonographic Shoemaker sign is negative.? ? Biliary ducts:? Intrahepatic bile ducts are non-dilated.? Extrahepatic bile duct caliber measures 7 mm.? Normal is 6-7 mm or less in diameter, or 10 mm or less post-cholecystectomy.? ? Pancreas:? The pancreas is not well seen. ? Spleen:? The spleen is mildly enlarged, measuring 13 5 cm in greatest length, with a volume 585 cc. ? Kidneys:? Kidneys are normal in size and echotexture.? Right kidney measures 9.5 cm long; left kidney measures 10.6 cm long.? No hydronephrosis or nephrolithiasis.? No solid masses.? ? Aorta:? Visualized aorta is normal in caliber at less than 3 cm.? ? Iliacs:? Proximal common iliac arteries are normal in caliber at less than 2.5 cm.? ? IVC:? IVC is not well seen. ? Miscellaneous:? No free abdominal fluid.? ? ? IMPRESSION:? Prominently fatty liver. ? Apparent gallstones are seen, without additional sonographic signs of cholecystitis. ? Common bile duct measures at the upper limits of normal at 7 mm. ? Mildly enlarged spleen. ? Dictated by: William Santos M.D. on 04/15/2022 at 16:55 ? ? Approved by: William Santos M.D. on 04/15/2022 at 16:56 ? CT scan - chest: Radiologist's Impression: Ana Tyler??61??F??1960 ? Allergy/Adv: No Known Drug Allergies Close Chest/Abdomen/Pelvis CT (Signed) Joby Parker - 04/15/22 Abdomen MRI (Signed) Joby Parker - 04/15/22 Abdomen Ultrasound (Signed) William Santos - 04/15/22 Mammogram Screening (Signed) TalyadevRajesh - 10/24/21 Foot X-Ray (Signed) Robert Moser - 01/10/21 Ankle X-Ray (Signed) Robert Moser - 01/10/21 Telemetry Strips 09/12/20 Mammogram Screening (Signed) Ian Sims - 08/07/20 Hand X-Ray (Signed) Rudy Garay - 02/22/20 Mammogram Screening (Signed) ManancelenajustoGemma - 04/08/19 Launch?[facility] [address] [address] [address] Scan Report Signed Patient: Ana Tyler MR#: [id number] : 1960 Acct:[id number] Age/Sex: 61 / F Date of Service: 04/15/22 Loc: ED Accession Number: [id number] ?? Procedure: CT chest abd pel w con Ordering Provider: Matt Day D.O. PROCEDURE:? CT CHEST ABD PEL W CON ? INDICATIONS:? sepsis, liver failure ? TECHNIQUE:? After the administration of intravenous contrast, axial sections acquired from the supraclavicular neck to the pubic symphysis.? Coronal and sagittal reformats were performed.? For radiation dose reduction, the following was used:? automated exposure control, adjustment of mA and/or kV according to patient size.? ? COMPARISON:[facility], MR, MR ABDOMEN WO/W CON, 04/15/2022, 19:18. ? FINDINGS:? Image quality:? Excellent.? ? CHEST: Lower Neck: No lymphadenopathy by size criteria. Thyroid:? Visualized thyroid demonstrates no discrete nodules. Axillae: No lymphadenopathy by size criteria. Chest Wall:? Unremarkable.? Bones: Visualized osseous structures demonstrate no suspicious lesions. ? Lungs and Airways:? No acute consolidation.? There is mild dependent atelectasis bilaterally.? There are a few scattered small peripheral pulmonary nodules measuring up to 0.2 cm suggestive of a mild infectious or inflammatory process.? There is a linear peripheral nodular opacity in the right lower lobe on series 3, image 150 suggestive of scarring or atelectasis.? The trachea and central airways are patent. Pleura: No pneumothorax or pleural effusions.? ? Heart: Heart size is normal.? No pericardial effusion. Thoracic Vessels: The aorta and pulmonary arteries are normal in size.? Mediastinum and Mara: No lymphadenopathy by size criteria. Esophagus: No wall thickening. No hiatal hernia. Lung bases:? Unremarkable.? ? Heart:? Heart is normal in size. ? ? ABDOMEN: Liver:? There is nodularity of the hepatic contour with diffuse heterogeneous nodular appearance of the liver compatible with cirrhosis. Gallbladder:? There is a calcified gallstone with mild gallbladder wall thickening.? The findings are nonspecific but may reflect developing cholecystitis. ? Biliary ducts:? No biliary ductal dilatation.? ? Pancreas:? There is peripancreatic fluid and fat stranding along the pancreatic head and uncinate process compatible with pancreatitis.? No pancreatic duct dilatation or discrete pancreatic mass identified. Spleen:? The spleen is enlarged, measuring up to 14.8 cm. Adrenal Glands:? No adrenal nodules.? ? Kidneys and Ureters:? No hydronephrosis.? ? ? Stomach and Bowel:? There is segmental small bowel wall thickening within the distal ileum extending to the ileocecal junction.? There is also mild segmental wall thickening within the ascending colon with mild pericolonic fat stranding.? Mild segmental wall thickening is also demonstrated in the sigmoid colon.? There is colonic diverticulosis without acute diverticulitis. Peritoneum:? There is a small amount of intraperitoneal free fluid.? No free air.? ? Ventral Wall: ? No hernia.? Abdominal Nodes:? No retroperitoneal or mesenteric adenopathy by size criteria.? Vessels:? Aorta and inferior vena cava are normal in size.? ? PELVIS: Pelvic Organs:? Unremarkable.? ? Bladder:? Unremarkable.? ? Pelvic Nodes: No enlarged lymph nodes.? Miscellaneous: No inguinal hernias are seen. ? ? ? Bones:? Visualized osseous structures demonstrate no suspicious focal lesions. IMPRESSION:? ? 1.? Segmental wall thickening of the distal ileum and ascending colon likely representing an infectious or inflammatory enterocolitis.? Mild segmental wall thickening in the sigmoid colon also likely reflects a colitis. ? 2.? Colonic diverticulosis without acute diverticulitis. ? 3.? Nodular hepatic contour with diffuse heterogeneous nodular appearance of the hepatic parenchyma compatible with cirrhosis. ? 4. Cholelithiasis with nonspecific gallbladder wall thickening.? The findings may reflect possible developing cholecystitis. ? 5. Peripancreatic fat stranding and fluid along the pancreatic head and uncinate process consistent with acute interstitial edematous pancreatitis.? No evidence of necrosis or acute peripancreatic fluid collections.? Dictated by: Joby Parker M.D. on 04/16/2022 at 0:30 ? ? Approved by: Joby Parker M.D. on 04/16/2022 at 0:38 ? MRCP: Radiologist's Impression: [address] [address] Magnetic Resonance Report Signed Patient: Ana Tyler MR#: [id number] : 1960 Acct:[id number] Age/Sex: 61 / F Date of Service: 04/15/22 Loc: ED Accession Number: [id number] ?? Procedure: MR abdomen wo/w con Ordering Provider: Matt Day D.O. PROCEDURE:? MR ABDOMEN WO/W CON ? INDICATIONS:? biliary obstruction ? TECHNIQUE:? Coronal HASTE, axial 2D FLASH in- and [id number]; axial breath-hold T2 FSE.? Dynamic axial VIBE during the administration of contrast; post-contrast coronal VIBE or 2D FLASH with fat saturation from the hepatic dome to the iliac crests.? Optional diffusion weighted imaging and ADC may be performed.? ? COMPARISON:? [facility], , US ABDOMEN COMPLETE, 04/15/2022, 17:12. ? FINDINGS:? Image quality:? There is motion artifact limiting evaluation.? ? Lung bases:? No basal pleural effusions.? Heart size is normal.? ? Solid organs:? The liver demonstrates heterogeneous signal dropout on [id number] imaging consistent with fatty infiltration.? Diffuse nodularity of the hepatic parenchyma is suggestive of cirrhosis.? No discrete hepatic mass or suspicious enhancement identified following contrast administration. ? There is at least 1 small filling defect within the gallbladder fundus consistent with a gallstone.? No wall thickening or pericholecystic fluid.? Biliary system is non dilated.? No definite filling defects within the common mild duct to suggest choledocholithiasis.? ? There is minimal peripancreatic fluid along the pancreatic head adjacent to the descending duodenum.? Pancreas is normal in morphology without a discrete pancreatic mass.? No pancreatic duct dilatation.? The spleen is enlarged, measuring up to 14.6 cm. No adrenal nodules.? The kidneys demonstrate no hydronephrosis. ? Nodes and vessels:? No retroperitoneal or mesenteric adenopathy by size criteria.? Aorta and inferior vena cava are normal in size.? ? Bowel and peritoneum:? Visualized bowel loops are normal in caliber.? No free fluid.? ? Bones and soft tissues:? No ventral hernias.? Bone marrow is normal in overall signal.? IMPRESSION:? ? 1. Cholelithiasis without evidence of cholecystitis. ? 2. Diffuse nodularity of the hepatic parenchyma suggestive of cirrhosis.? Heterogeneous fatty infiltration is demonstrated without a discrete hepatic mass or suspicious enhancement to suggest a hepatoma. ? 3. No biliary ductal dilatation or evidence of choledocholithiasis. ? 4. Minimal pancreatic fluid between the pancreatic head and descending portion of the duodenum suggestive of mild groove pancreatitis. ? ? ? Dictated by: Joby Parker M.D. on 04/15/2022 at 20:15 ? ? Approved by: Joby Parker M.D. on 04/15/2022 at 20:30 ? MDM Narrative Medical decision making narrative: Patient presents with unexplained weight loss and painless jaundice with decreased appetite but no vomiting, fever, chills or pain. She is had an extensive workup and lab abnormalities seem most consistent with an alcoholic hepatitis as patient reports history of heavy drinking but has cut down to 2 glasses of wine daily. Imaging is reassuring and though there was concern for biliary obstruction due to stone such as choledocholithiasis or given painless jaundice possibly a mass. There is no evidence of immediate need for surgical intervention or ERCP. Patient requires hospitalization for further evaluation, stabilization and treatment. Discharge Plan Departure Patient Disposition: Admitted As Inpatient Clinical Impression: Painless jaundice, Alcoholic cirrhosis, Alcohol use disorder, Anemia, macrocytic, Leukocytosis Admit Date/Time: 04/16/22 02:57 Admit Provider: Carlos Manuel Stevens
--- NOTE | 2022-04-15 18:55 | DI.MRI.S_ITS ---
PROCEDURE: MR ABDOMEN WO/W CON INDICATIONS: biliary obstruction TECHNIQUE: Coronal HASTE, axial 2D FLASH in- and [id number]; axial breath-hold T2 FSE. Dynamic axial VIBE during the administration of contrast; post-contrast coronal VIBE or 2D FLASH with fat saturation from the hepatic dome to the iliac crests. Optional diffusion weighted imaging and ADC may be performed. COMPARISON: [facility], US, US ABDOMEN COMPLETE, 04/15/2022, 17:12. FINDINGS: Image quality: There is motion artifact limiting evaluation. Lung bases: No basal pleural effusions. Heart size is normal. Solid organs: The liver demonstrates heterogeneous signal dropout on [id number] imaging consistent with fatty infiltration. Diffuse nodularity of the hepatic parenchyma is suggestive of cirrhosis. No discrete hepatic mass or suspicious enhancement identified following contrast administration. There is at least 1 small filling defect within the gallbladder fundus consistent with a gallstone. No wall thickening or pericholecystic fluid. Biliary system is non dilated. No definite filling defects within the common mild duct to suggest choledocholithiasis. There is minimal peripancreatic fluid along the pancreatic head adjacent to the descending duodenum. Pancreas is normal in morphology without a discrete pancreatic mass. No pancreatic duct dilatation. The spleen is enlarged, measuring up to 14.6 cm. No adrenal nodules. The kidneys demonstrate no hydronephrosis. Nodes and vessels: No retroperitoneal or mesenteric adenopathy by size criteria. Aorta and inferior vena cava are normal in size. Bowel and peritoneum: Visualized bowel loops are normal in caliber. No free fluid. Bones and soft tissues: No ventral hernias. Bone marrow is normal in overall signal. IMPRESSION: 1. Cholelithiasis without evidence of cholecystitis. 2. Diffuse nodularity of the hepatic parenchyma suggestive of cirrhosis. Heterogeneous fatty infiltration is demonstrated without a discrete hepatic mass or suspicious enhancement to suggest a hepatoma. 3. No biliary ductal dilatation or evidence of choledocholithiasis. 4. Minimal pancreatic fluid between the pancreatic head and descending portion of the duodenum suggestive of mild groove pancreatitis. Dictated by: Joby Parker M.D. on 04/15/2022 at 20:15 Approved by: Joby Parker M.D. on 04/15/2022 at 20:30
[2022-04-15] MEDS: PIPERACILLIN/TAZO 4.5 GM in SODIUM CHLORIDE 0.9% 100 ML IV (19:01)
[2022-04-15] MEDS: SODIUM CHLORIDE 0.9% 1,641 ML 547 ML IV (19:02)
[2022-04-15 19:32] LABS: Acetaminophen < 10 ug/mL (10-30); Ammonia (NH3) 64 umol/L (9-30); Ethanol (ETOH) < 10 mg/dL; Lactate (Lactic Acid) 1.9 mmol/L (0.7-2.1)
--- NOTE | 2022-04-15 22:50 | DI.CT.S_ITS ---
PROCEDURE: CT CHEST ABD PEL W CON INDICATIONS: sepsis, liver failure TECHNIQUE: After the administration of intravenous contrast, axial sections acquired from the supraclavicular neck to the pubic symphysis. Coronal and sagittal reformats were performed. For radiation dose reduction, the following was used: automated exposure control, adjustment of mA and/or kV according to patient size. COMPARISON:[facility], MR, MR ABDOMEN WO/W CON, 04/15/2022, 19:18. FINDINGS: Image quality: Excellent. CHEST: Lower Neck: No lymphadenopathy by size criteria. Thyroid: Visualized thyroid demonstrates no discrete nodules. Axillae: No lymphadenopathy by size criteria. Chest Wall: Unremarkable. Bones: Visualized osseous structures demonstrate no suspicious lesions. Lungs and Airways: No acute consolidation. There is mild dependent atelectasis bilaterally. There are a few scattered small peripheral pulmonary nodules measuring up to 0.2 cm suggestive of a mild infectious or inflammatory process. There is a linear peripheral nodular opacity in the right lower lobe on series 3, image 150 suggestive of scarring or atelectasis. The trachea and central airways are patent. Pleura: No pneumothorax or pleural effusions. Heart: Heart size is normal. No pericardial effusion. Thoracic Vessels: The aorta and pulmonary arteries are normal in size. Mediastinum and Mara: No lymphadenopathy by size criteria. Esophagus: No wall thickening. No hiatal hernia. Lung bases: Unremarkable. Heart: Heart is normal in size. ABDOMEN: Liver: There is nodularity of the hepatic contour with diffuse heterogeneous nodular appearance of the liver compatible with cirrhosis. Gallbladder: There is a calcified gallstone with mild gallbladder wall thickening. The findings are nonspecific but may reflect developing cholecystitis. Biliary ducts: No biliary ductal dilatation. Pancreas: There is peripancreatic fluid and fat stranding along the pancreatic head and uncinate process compatible with pancreatitis. No pancreatic duct dilatation or discrete pancreatic mass identified. Spleen: The spleen is enlarged, measuring up to 14.8 cm. Adrenal Glands: No adrenal nodules. Kidneys and Ureters: No hydronephrosis. Stomach and Bowel: There is segmental small bowel wall thickening within the distal ileum extending to the ileocecal junction. There is also mild segmental wall thickening within the ascending colon with mild pericolonic fat stranding. Mild segmental wall thickening is also demonstrated in the sigmoid colon. There is colonic diverticulosis without acute diverticulitis. Peritoneum: There is a small amount of intraperitoneal free fluid. No free air. Ventral Wall: No hernia. Abdominal Nodes: No retroperitoneal or mesenteric adenopathy by size criteria. Vessels: Aorta and inferior vena cava are normal in size. PELVIS: Pelvic Organs: Unremarkable. Bladder: Unremarkable. Pelvic Nodes: No enlarged lymph nodes. Miscellaneous: No inguinal hernias are seen. Bones: Visualized osseous structures demonstrate no suspicious focal lesions. IMPRESSION: 1. Segmental wall thickening of the distal ileum and ascending colon likely representing an infectious or inflammatory enterocolitis. Mild segmental wall thickening in the sigmoid colon also likely reflects a colitis. 2. Colonic diverticulosis without acute diverticulitis. 3. Nodular hepatic contour with diffuse heterogeneous nodular appearance of the hepatic parenchyma compatible with cirrhosis. 4. Cholelithiasis with nonspecific gallbladder wall thickening. The findings may reflect possible developing cholecystitis. 5. Peripancreatic fat stranding and fluid along the pancreatic head and uncinate process consistent with acute interstitial edematous pancreatitis. No evidence of necrosis or acute peripancreatic fluid collections. Dictated by: Joby Pakrer M.D. on 04/16/2022 at 0:30 Approved by: Joby Parker M.D. on 04/16/2022 at 0:38
[2022-04-16] VITALS: PULSE 102; O2SAT 93
[2022-04-16 00:30] VITALS: PULSE 104; O2SAT 94
--- NOTE | 2022-04-16 03:04 | P.HP_ITS ---
History of Present Illness History of Present Illness Date Patient Seen: 04/16/22 Time Patient Seen: 03:00 Chief complaint: Eyes yellow, body aches, nausea, SOB, Fatigue, Narrative: Ms. Tyler is a 61W with PMH HTN, gastritis, and alcohol abuse who presents to the hospital with jaundice, fatigue, nausea, and weight loss. She has noted that over the last few months she has had at least a 15lb weight loss. She has noted less energy than usual, and decreased appetite over the last few months. She has had intermittent nausea. She has abdominal fullness. She has not had abdominal pain, no vomiting, no diarrhea. No fevers/chills. She has not had any confusion. 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 She has significant alcohol use, has drank for years, and currently says she drinks 2 glasses of wine a night. She has not had any new medications aside from pantoprazole for gastritis. In the ED workup was done, vitals notable for being afebrile, tachycardic to the low 100s. Labs notable for WBC 26.7, hgb 11.6, plts 317. Na 137, k 3.1, creatinine 0.43. INR 2.1. Bili 5.3, AST 173, ALT 35, alk phos 312. Lipase 131. Tylenol negative. EtOH negative. Abdominal ultrasound and MRCP shows no acute process. CT chest abdomen and pelvis shows possible pulmonary nodules, thick gallbladder wall, thickened colon wall and pancreatic edema. She was ordered for zosyn and admitted for further treatment. Patient History Medical History Actinic keratoses Actinic skin damage Fractures (2014) Hallux rigidus, left foot (09/2017) Hand injury Hearing loss (2006) Hypertension (2017) Pruritic rash Surgical History Anesthesia complication History of bilateral salpingectomy (06/2017) History of ear surgery (1995) History of gynecologic surgery (1982) History of unilateral oophorectomy (06/2017) Status post left foot surgery (09/2017) Family & Social History Family History Father Heart disease Hypertension Mother Cancer Diabetes mellitus Brother No problems noted. Sister Hypertension Safety & Behavioral: Feels Safe in Current Yes Environment Tobacco & Substance use: Smoking Status Never smoker alcohol intake current alcohol intake frequency 3 or more drinks per day Substance Use Type does not use Meds Home Medications and Allergies Home Medications Medication Instructions Recorded Confirmed Type cetirizine 10 mg tablet (Zyrtec) 10 mg PO DAILY PRN 01/10/21 01/08/22 History clobetasol 0.05 % topical cream 1 applic topical DAILY 11/10/21 01/08/22 History amlodipine 2.5 mg tablet 2.5 mg PO DAILY #90 tabs 02/17/22 Rx hydroxyzine HCl 25 mg tablet 12.5 - 50 mg PO TID PRN itching 03/12/22 Rx #30 tabs Allergies Allergy/AdvReac Type Severity Reaction Status Date / Time No Known Drug Allergies Allergy Verified 04/15/22 11:27 Review of Systems Review of Systems Narrative: 14 systems reviewed and negative aside from what is noted in HPI Exam Vital Signs (past 8 hours): - 04/15/22 20:54 04/15/22 20:55 04/15/22 20:55 Pulse Rate 103 H 104 H Blood Pressure 128/76 Pulse Oximetry 99 99 04/15/22 21:00 04/15/22 21:00 04/15/22 21:30 Pulse Rate 103 H Blood Pressure 124/75 124/76 Pulse Oximetry 98 04/15/22 21:30 04/15/22 22:00 04/15/22 22:00 Pulse Rate 103 H 105 H Blood Pressure 111/63 Pulse Oximetry 96 95 04/15/22 22:30 04/15/22 22:30 04/15/22 23:06 Pulse Rate 103 H 107 H Blood Pressure 120/69 Pulse Oximetry 95 95 04/15/22 23:30 04/16/22 00:00 04/16/22 00:30 Pulse Rate 105 H 102 H 104 H Blood Pressure Pulse Oximetry 96 93 94 Oxygen Delivery Method Room Air Narrative Exam Narrative: GEN: no acute distress HEENT: scleral icterus, moist mucous membranes NECK: trachea midline, no JVD PULM: clear bilaterally, no wheezes, rhonchi, rales CV: regular rate and rhythm, no murmurs ABD: soft, nontender, nondistended, +splenomegaly, no rebound/guarding EXT: warm and well perfused with no edema NEURO: awake, alert, oriented, no focal deficits, no asterixis Objective Labs Result Diagrams: 04/15/22 11:30 04/15/22 11:30 Labs: Laboratory Results - last 24 hr 04/15/22 04/15/22 04/15/22 11:30 11:30 11:30 WBC 26.7 H RBC 3.15 L Hgb 11.6 L Hct 33.6 L MCV 106.7 H MCH 36.8 H MCHC 34.5 RDW 14.3 Plt Count 317 Neut % (Auto) Not Reportable Lymph % (Auto) Not Reportable Dickey % (Auto) Not Reportable Eos % (Auto) Not Reportable Baso % (Auto) Not Reportable Lymph # (Auto) Not Reportable Dickey # (Auto) Not Reportable Baso # (Auto) Not Reportable Total Counted 100 Seg Neutrophils % 85.0 H Band Neutrophils % 3.0 Lymphocytes % (Manual) 7.0 L Monocytes % (Manual) 4.0 Eosinophils % (Manual) 1.0 L Neutrophils # (Manual) 83317 H RBC Morphology See below Macrocytosis 1+ H PT 23.9 H INR 2.1 H APTT 42 H Sodium 137 Potassium 3.1 L Chloride 100 Carbon Dioxide 28 BUN 2 L Creatinine 0.43 L Estimated GFR > 60 BUN/Creatinine Ratio 4.7 L Glucose 116 H Lactate Calcium 8.3 L Total Bilirubin 5.3 H AST 173 H ALT 35 H Alkaline Phosphatase 312 H Ammonia Total Protein 8.0 Albumin 3.3 L Globulin 4.7 H Albumin/Globulin Ratio 0.7 L Lipase 131 Acetaminophen Ethyl Alcohol SARS-CoV-2 (PCR) 04/15/22 04/15/22 04/15/22 11:30 11:30 18:15 WBC RBC Hgb Hct MCV MCH MCHC RDW Plt Count Neut % (Auto) Lymph % (Auto) Dickey % (Auto) Eos % (Auto) Baso % (Auto) Lymph # (Auto) Dickey # (Auto) Baso # (Auto) Total Counted Seg Neutrophils % Band Neutrophils % Lymphocytes % (Manual) Monocytes % (Manual) Eosinophils % (Manual) Neutrophils # (Manual) RBC Morphology Macrocytosis PT INR APTT Sodium Potassium Chloride Carbon Dioxide BUN Creatinine Estimated GFR BUN/Creatinine Ratio Glucose Lactate Calcium Total Bilirubin AST ALT Alkaline Phosphatase Ammonia 28 Total Protein Albumin Globulin Albumin/Globulin Ratio Lipase Acetaminophen < 10 Ethyl Alcohol < 10 SARS-CoV-2 (PCR) Negative 04/15/22 04/15/22 18:15 18:15 WBC RBC Hgb Hct MCV MCH MCHC RDW Plt Count Neut % (Auto) Lymph % (Auto) Dickey % (Auto) Eos % (Auto) Baso % (Auto) Lymph # (Auto) Dickey # (Auto) Baso # (Auto) Total Counted Seg Neutrophils % Band Neutrophils % Lymphocytes % (Manual) Monocytes % (Manual) Eosinophils % (Manual) Neutrophils # (Manual) RBC Morphology Macrocytosis PT INR APTT Sodium Potassium Chloride Carbon Dioxide BUN Creatinine Estimated GFR BUN/Creatinine Ratio Glucose Lactate 1.9 Calcium Total Bilirubin AST ALT Alkaline Phosphatase Ammonia 64 H Total Protein Albumin Globulin Albumin/Globulin Ratio Lipase Acetaminophen Ethyl Alcohol SARS-CoV-2 (PCR) Assessment & Plan Assessment & Plan narrative: Ms. Tyler is a 61W with alcohol abuse who presents with new onset jaundice s econdary to likely new presumed alcoholic cirrhosis. 1. New onset presumed cirrhosis secondary to alcoholic, with probable acute severe alcoholic hepatitis -labs with elevated LFTs, most predominant elevated bilirubin -check direct bilirubin -check viral serologies -abdominal ultrasound, MRCP, and CT abdomen performed which show no dilated biliary ducts, no evidence of choledocholithiasis, no mass -liver is nodular in appearance, and with abnormal LFTs, low albumin, elevated INR, and anemia this is consistent with probable cirrhosis -will need to abstain for alcohol -with transaminitis and leukocytosis likely has alcoholic hepatitis -discriminant function elevated at 56.8 consistent with severe alcoholic hepatitis -MELD 21 -rule out infection, check UA, make sure not intra-abdominal infection, if infectious workup negative consider starting glucocorticoids -dietary consult for cirrhosis -will need outpatient referral to GI 2. Alcohol abuse -patient denies withdrawal now, no history of withdrawal -given significant etoh use, will put on ciwa protocol -continue MVI, thiamine, folate -PRN PO benzos for alcohol withdrawal -social work consult 3. Leukocytosis -etiology uncertain -check procalcitonin to determine if more likely stress reaction or infection -no fevers -minimal abdominal symptoms, and no significant pain or diarrhea -CT abdomen showed question of pancreatitis, colitis, and cholecystitis though patient does not have symptoms consistent with this -may be secondary to inflammatory response from hepatitis -for now continue IV zosyn -check stool cultures if has significant diarrhea 4. Macrocytic anemia -suspected secondary to alcohol abuse -transfuse if hgb <7 -check folate, b12 5. Coagulopathy -INR >2 -no evidence of any bleeding -suspect secondary to cirrhosis -trend in AM 6. Pruritius -patient states recent diagnosis of chris's disease -may also have component of hepatic induced itching -consider cholestyramine 7. Hypokalemia -secondary to alcohol abuse -replete potassium 8. Alcoholic gastritis and reflux -continue pantoprazole CODE: Full Proxy: Shelley Garcia, daughter I have utilized all available resources to reconcile the patient's home me dications Time Spent With Patient Critical Care time: I spent a total of [] minutes of critical care time on this patient's care today; this time is exclusive of procedural time. Quality MIPS - Admit I confirm the patient?s Advance Care Plan is present, Code status is documented, Surrogate decision maker is in patient?s record [If Yes, STOP here]: Yes
[2022-04-16 03:21] VITALS: BMI 22.9
[2022-04-16 04:10] LABS: Hematocrit 32.2 % (36-46); Hemoglobin 10.9 g/dL (12.0-16.0); Mean Corpuscular HGB Conc 33.9 % (30-36); Mean Corpuscular Hemoglobin 36.1 PG (26-34); Mean Corpuscular Volume 106.3 fL (80-100); Platelet Count 277 X10^3/uL (150-400); Red Blood Cell Count 3.03 X10^6/uL (4.0-5.2); Red Cell Distribution Width 14.5 % (11.6-14.8)
[2022-04-16 04:11] LABS: Add Manual Diff / Slide Review YES
[2022-04-16 04:16] LABS: Bilirubin Direct 2.5 mg/dL (0.0-0.4)
[2022-04-16 04:34] LABS: Procalcitonin 0.27 ng/mL (<0.5)
[2022-04-16 04:35] VITALS: BP 116/70; PULSE 96; RESP 18; TEMP 36.3; O2SAT 97
[2022-04-16] MEDS: PIPERACILLIN/TAZO 3.375 GM in SODIUM CHLORIDE 0.9% 100 ML IV (04:52)
[2022-04-16] MEDS: SODIUM CHLORIDE 0.9% 250 ML 21 ML IV (04:52)
[2022-04-16] MEDS: POTASSIUM CHLORIDE 20 MEQ TAB 40 MEQ PO ×2 (04:53→10:53)
[2022-04-16 04:54] LABS: Alanine Aminotransferase 31 IU/L (<35); Albumin 2.9 g/dL (3.5-5.0); Albumin Globulin Ratio 0.7 (1.0-2.8); Alkaline Phosphatase 252 U/L (38-126); Aspartate Aminotransferase 137 IU/L (14-36); Bilirubin Total 4.5 mg/dL (0.2-1.3); Calcium 7.7 mg/dL (8.4-10.2); Carbon Dioxide 26 mmol/L (22-32); Chloride 104 mmol/L (98-107); Estimated Glomerular Filt Rate > 60 mL/min (>60); Globulin 4.1 g/dL (1.7-4.1); Glucose 102 mg/dL (80-110); Phosphorous 3.4 mg/dL (2.8-4.1); Sodium 138 mmol/L (137-145)
[2022-04-16 04:59] LABS: BUN Creatinine Ratio 5.3 (6-22); Blood Urea Nitrogen < 2 mg/dL (7-17)
[2022-04-16] MEDS: SODIUM CHLORIDE 0.9% FLUSH 10 ML IV (05:33)
[2022-04-16 06:05] LABS: INR 2.2 (0.9-1.3); Prothrombin Time 25.1 SECONDS (10.1-12.7)
--- NOTE | 2022-04-16 06:31 | PC.NURSE ---
Pt. admitted to the floor from ER. Oriented to her room showed how to use her call light, TV & bed controls. Denies any pain & nausea upon admission to her room. Declined to have her valuables place in hospital safe & wants to keep all her belongings with her @ the bedside. Medications was sent to the pharmacy. Denies any fall, pt. ambulated to the BR. CIWA score was zero. Will cont. POC & monitor.
[2022-04-16 06:39] LABS: Macrocytosis 1+; Neutrophils Absolute Manual 18040 /uL (3000-5900); Total Cells Counted 100
[2022-04-16] MEDS: PANTOPRAZOLE DR 40 MG TABLET PO (06:53)
[2022-04-16 07:30] VITALS: BP 104/68; PULSE 92; RESP 18; TEMP 36.9; O2SAT 96
[2022-04-16 08:28] LABS: Vitamin B12 717 pg/mL (239-931)
[2022-04-16 08:45] VITALS: O2SAT 96
[2022-04-16 08:45] LABS: Folate 3.3 ng/mL (2.76-20.0); HEMOLYSIS 30 (0-50)
[2022-04-16 09:12] LABS: Appearance Urine UA CLEAR; Bilirubin Urine UA NEGATIVE (NEGATIVE); Color Urine UA YELLOW; Glucose Urine UA TRACE g/dL (Negative); Ketones Urine UA NEGATIVE (NEGATIVE); Leukocyte Esterase Urine UA NEGATIVE (NEGATIVE); Nitrite Urine UA NEGATIVE (Negative); Occult Blood Urine UA NEGATIVE (Negative); Protein Urine UA NEGATIVE (Negative); Specific Gravity Urine UA <=1.005 (1.000-1.035)
[2022-04-16 09:39] LABS: Bacteria Urine Occasional (0-1); RBC Urine None Seen (0-5/HPF); Squamous Epithelial Cell Urine None Seen (0-5/HPF); WBC Urine None Seen (0-5/HPF)
[2022-04-16 09:40] LABS: Culture Indicated Urine Cult Not Indicated
[2022-04-16] MEDS: THIAMINE 100 MG TABLET PO (10:13)
[2022-04-16] MEDS: FOLIC ACID 1 MG TABLET PO (10:13)
[2022-04-16] MEDS: MULTIVITAMIN 1 TABLET 1 TAB PO (10:13)
[2022-04-16] MEDS: ENOXAPARIN 40 MG/0.4 ML SYRINGE SUBCUT (10:13)
--- NOTE | 2022-04-16 10:33 | CM.DANOTE ---
Initial DCP Assessment Note Pt is a 61 yo female, resident of [place], arrives w/yellow eyes, body aches, nausea and SOB, admitted inpatient for New onset presumed cirrhosis secondary to alcoholic, with probable acute severe alcoholic hepatitis PCP: Zacarias Fermin Payer: Bruno/TOMASZ Reviewed chart, met w/patient to introduce self and role; patient states she was expecting this RETREAD MOLD OPERATOR and states appreciation for the visit Patient lives alone, typically indp and active at baseline; States she has a lot of supportive friends and neighbors; all family is currently located in [place] Patient endorses two glasses of wine nightly, states it has helped her relax and allows me to eat a little more of my dinner. Patient endorses GI sx for many months; nausea, fatigue, intermittent vomiting.. all that have decreased her motivation to get up in the morning, to exercise and to eat regularly. Thus decreasing quality of life Patient tells this RETREAD MOLD OPERATOR, when asked about grief, that her sister (NICHOLE) suddenly and I don't want to talk about my sister. Patient admitted her increase in drinking, which at the time was vodka + soda, was after her sister . Patient began drinking wine months ago in an attempt to cut out food/drink that irritated her GI sx When patient was asked if her drinking was currently a problem for her, she admitted that her drinking had appeared to be a medical problem, and that the amount she was drinking over the last 5 months was normal, drinks with dinner or with friends. Patient intends to stop drinking, states she will not have any cravings once home Offered ZO treatment/recovery options- Patient states she can talk with friends for support and asks this RETREAD MOLD OPERATOR about someone that could call me to check in and this RETREAD MOLD OPERATOR suggests an AA Sponsor. Patient resistant and says if she is interested later she can look up resources Strongly encouraged patient to consider counseling, patient resistant at this time Plan: DC home w/friend via pov expected; patient declined ZO treatment and recovery resources at this time Patient discussed w/Pastora Stanford, acid bleacher for coordination of care and planning SUZAN Wood Discharge Planning/Care Management CM Discharge Assessment Start: 04/16/22 10:31 Freq: Status: Active Protocol: Document 04/16/22 10:31 YARON (Rec: 04/16/22 10:33 JW [id number]) Discharge Planning Assessment Assigned Medical Case Worker SUZAN Little DPOA/Assigned Designee Name Shelley Garcia dtr ([place]) Contact Information [phone] Advance Directives? No History Provided By Patient Prior Living Arrangements House Household Members other Type of transporation used prior to Drives own vehicle admit Independent with ADL's Yes Is patient alert and oriented? Yes Barriers to Discharge No Comment Home w/friends Discharge Plan Home Transportation Arrangement Friend Referrals Initiated None needed
--- NOTE | 2022-04-16 11:01 | DIET.CONS ---
Dietary Consultation Note Admission Date: 04/16/2022 02:57 Assessment: 61y F admitted for jaundice referred to nutrition for weight loss and cirrhosis nutrition education. Pt reports reduced appetite, nausea, and post-nasal drip beginning in October 2021. Prior to this pt had been weight stable at 66-68kg. Pt reports interest in and enjoyment of cooking and eating until sx started. Pt stopped eating dairy, carbonation, citrus, tomatoes, mint, stopped eating after 5pm to try to deal with what she thought was silent reflux. Pt assessed by GI at [facility] with endoscopy finding mild stomach inflammation, pt has been taking omeprazole x8 weeks but reports dietary changes and meds have not caused any improvement in sx. Pt reports 15# (5.4#) unintentional weight loss in 3mo which is confirmed by weight hx in EHR, pt reports increasing weakness as well. Visual NFPE shows yellow eyes and skin, loose skin on arms indicating rapid weight loss, reduced fat mass in face and firm rounded belly which is notably larger than her overall body composition otherwise. Usual Day: B: watermelon slice and 1/2 piece toast L: hummus c celery, carrots and 3-4 gallo chips D: pasta c butter and parmesan cheese at 5pm Pt with >12 overnight fast daily Pt reports hx daily intake vodka sodas which turned into 2 5oz glasses wine nightly this spring. K+ 3.1 L BUN 2 L Cr 0.43 L TBili 5.3 H elevated liver enzymes with AST >3x ALT Ammonia 64 H Ht: 162.56 cm Wt: 60.7 kg (-5.4% in 3mo) BMI: 22.9 UBW: 66-68kg Last BM: 04/14/22 (04/16/22 03:21) MNA: 9 Parish Score: 21 Diet: 04/16/22 Breakfast Low Sodium Diet (2gm) Diet Modifications: Nutrition Percent Meal Consumed 25% 04/16/22 09:52 Labs: RBC 3.03 X10^6/uL (4.0-5.2) L 04/16/22 03:50 Hgb 10.9 g/dL (12.0-16.0) L 04/16/22 03:50 Hct 32.2 % (36-46) L 04/16/22 03:50 Creatinine 0.38 mg/dL (0.52-1.04) L 04/16/22 03:50 Lactate 1.9 mmol/L (0.7-2.1) 04/15/22 18:15 Nutrition Diagnosis: 1. Acute Moderate Protein Calorie Malnutrition r/t inadequate oral intake secondary to ongoing nausea, bile emesis and abd fullness aeb pt with 5.4# unintentional weight loss in 3mo, pt with N/abd fullness x6mo, food recall showing pt meeting <75% EER with >12h fast nightly and limited diet r/t pt trying to reduce sx silent reflux. 2. altered GI function r/t etoh induced liver cirrhosis aeb altered liver enzymes (listed above), pt reports abd fullness, bloating and nausea c daily bile emesis, pt reports daily etoh use and reduced oral intake. -The patient is at much higher risk for medical and surgical complications because of his malnutrition. This increases the difficulty and complexity of medical and surgical interventions and increases the chances of poor outcomes such as morbidity and mortality. Interventions: 1. educated pt on role of etoh in cirrhosis, N/V/abd fullness with reccs to eliminate etoh use to support liver fxn and reduce sx. Pt agrees to eliminate etoh. 2. To support malnourished state and new dx, educated pt on MNT for cirrhosis including high pro diet, small frequent meals and snacks reducing periods of fasting to slow muscle wasting and weight loss. Pt agrees to change daily meal timing and composition and will start drinking ONS between meals and before bed. 3. Sending ONS Vanfadia Johnson Enlive tid while hospitalized with fruit cup providing 80% PRO and 50% kcals in addition to meal trays. EER: 1800-2100kcals/d (30-35kcal/kg), 60-79g PRO (1.0-1.3g/kg per PCM) Monitoring/Evaluations: POs, ONS tolerance Electronically Signed by: Pastora Stanford 04/16/22 11:01 Clinical Dietitian [address] [id number]
[2022-04-16 12:00] VITALS: BP 119/79; PULSE 101; RESP 18; TEMP 36.7; O2SAT 99
[2022-04-16] MEDS: ONDANSETRON 4 MG/2 ML INJ IV (12:05)
--- NOTE | 2022-04-16 13:54 | P.DS_ITS ---
History of Present Illness History of Present Illness Date Patient Seen: 04/16/22 Chief complaint: Eyes yellow, body aches, nausea, SOB, Fatigue, Narrative: Per Dr. Stevens , Ms. Tyler is a 61W with PMH HTN, gastritis, and alcohol abuse who presents to the hospital with jaundice, fatigue, nausea, and weight loss. She has noted that over the last few months she has had at least a 15lb weight loss. She has noted less energy than usual, and decreased appetite over the last few months. She has had intermittent nausea. She has abdominal fullness. She has not had abdominal pain, no vomiting, no diarrhea. No fevers/chills. She has not had any confusion. 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 She has significant alcohol use, has drank for years, and currently says she drinks 2 glasses of wine a night. She has not had any new me dications aside from pantoprazole for gastritis. In the ED workup was done, vitals notable for being afebrile, tachycardic to the low 100s. Labs notable for WBC 26.7, hgb 11.6, plts 317. Na 137, k 3.1, creatinine 0.43. INR 2.1. Bili 5.3, AST 173, ALT 35, alk phos 312. Lipase 131. Tylenol negative. EtOH negative. Abdominal ultrasound and MRCP shows no acute process. CT chest abdomen and pelvis shows possible pulmonary nodules, thick gallbladder wall, thickened colon wall and pancreatic edema. She was ordered for zosyn and admitted for further treatment. Discharge Providers Provider Date of admission: 04/16/22 02:57 Discharge Date: 04/16/22 Primary care physician: Zacarias Fermin MD Consults: 04/16/22 04:21 Consult to Dietitian, Adult Routine Comment: Reason For Exam: weight loss, cirrhosis Consult [place] [facility] [place] [employer] Routine Comment: etoh abuse Discharge provider: Torsten Burroughs DO Summary Hospital Course Discharge Diagnosis: 1. New onset presumed cirrhosis secondary to alcohol 2. Alcohol abuse 3. Leukocytosis 4. Macrocytic anemia 5. Coagulopathy 6. Pruritius 7. Hypokalemia 8. Alcoholic gastritis and reflux 9. Acute moderate protein calorie malnutrition. Hospital Course: Ms. Tyler is a 61W with alcohol abuse who presents with new onset jaundice secondary to likely new presumed alcoholic cirrhosis. Given her leukocytosis, extensive infectious workup was performed but no obvious cause could be found. There was not sufficient ascites on imaging studies to perform paracentesis. She was started on IV antibiotics empirically for presumed cholangitis, but given MRI without biliary obstruction this was not the cause. I am discharging the patient on augmentin given degree of leukocytosis for possible infection, though none was found. I recommend patient conintue further cirrhosis evaluation with her PCP and GI provider. Hepatitis panel was sent. There was concern for possible alcoholic hepatitis though given imaging and relatively normal AST and ALT levels this seems much less likely than alcoholic cirrhosis. Patient is at much higher risk for medical complications given her malnutrition. This increases the difficulty and complexity of medical interventions and increases the probability of poor outcomes such as morbidity and mortality. She was provided with nutrition consultation and supplements. Patient was counseled on alcohol cessation. She improved much more quickly than expected and was able to be discharged home shortly after admission. Time Spent with Patient Time spent: Greater than 30 minutes Exam Vital Signs (past 8 hours): - 04/16/22 07:30 04/16/22 08:45 04/16/22 12:00 Temperature 98.5 F 98.0 F Pulse Rate 92 H 101 H Respiratory Rate 18 18 Blood Pressure 104/68 119/79 Pulse Oximetry 96 96 99 Oxygen Delivery Method Room Air Oxygen Flow Rate 0 0 Oxygen Delivery Method Room Air Oxygen Flow Rate 0 Narrative Exam Narrative: GEN: no acute distress HEENT: scleral icterus, moist mucous membranes NECK: trachea midline, no JVD PULM: clear bilaterally, no wheezes, rhonchi, rales CV: regular rate and rhythm, no murmurs ABD: soft, nontender, nondistended, +splenomegaly, no rebound/guarding EXT: warm and well perfused with no edema NEURO: awake, alert, oriented, no focal deficits, no asterixis Objective Labs Result Diagrams: 04/16/22 03:50 04/16/22 03:50 Labs: Laboratory Results - last 24 hr 04/15/22 04/15/22 04/15/22 18:15 18:15 18:15 WBC RBC Hgb Hct MCV MCH MCHC RDW Plt Count Neut % (Auto) Lymph % (Auto) [place] % (Auto) Eos % (Auto) Baso % (Auto) Lymph # (Auto) [place] # (Auto) Baso # (Auto) Total Counted Seg Neutrophils % Band Neutrophils % Lymphocytes % (Manual) Monocytes % (Manual) Eosinophils % (Manual) Neutrophils # (Manual) RBC Morphology Macrocytosis PT INR Sodium Potassium Chloride Carbon Dioxide BUN Creatinine Estimated GFR BUN/Creatinine Ratio Glucose Lactate 1.9 Calcium Phosphorus Magnesium Total Bilirubin Direct Bilirubin AST ALT Alkaline Phosphatase Ammonia 64 H Total Protein Albumin Globulin Albumin/Globulin Ratio Vitamin B12 Folate Procalcitonin Urine Color Urine Appearance Urine pH Ur Specific Alba Urine Protein Urine Glucose (UA) Urine Ketones Urine Occult Blood Urine Nitrate Urine Bilirubin Urine Urobilinogen Ur Leukocyte Esterase Urine RBC Urine WBC Ur Squamous Epith Cells Urine Bacteria Ur Culture Indicated? Acetaminophen < 10 Ethyl Alcohol < 10 04/16/22 04/16/22 04/16/22 03:50 03:50 03:50 WBC 22.0 H RBC 3.03 L Hgb 10.9 L Hct 32.2 L MCV 106.3 H MCH 36.1 H MCHC 33.9 RDW 14.5 Plt Count 277 Neut % (Auto) Not Reportable Lymph % (Auto) Not Reportable [place] % (Auto) Not Reportable Eos % (Auto) Not Reportable Baso % (Auto) Not Reportable Lymph # (Auto) Not Reportable [place] # (Auto) Not Reportable Baso # (Auto) Not Reportable Total Counted 100 Seg Neutrophils % 81.0 H Band Neutrophils % 1.0 L Lymphocytes % (Manual) 8.0 L Monocytes % (Manual) 7.0 Eosinophils % (Manual) 3.0 Neutrophils # (Manual) 85893 H RBC Morphology Not Reportable Macrocytosis 1+ H PT INR Sodium Potassium Chloride Carbon Dioxide BUN Creatinine Estimated GFR BUN/Creatinine Ratio Glucose Lactate Calcium Phosphorus Magnesium Total Bilirubin Direct Bilirubin 2.5 H AST ALT Alkaline Phosphatase Ammonia Total Protein Albumin Globulin Albumin/Globulin Ratio Vitamin B12 Folate Procalcitonin 0.27 Urine Color Urine Appearance Urine pH Ur Specific [place] Urine Protein Urine Glucose (UA) Urine Ketones Urine Occult Blood Urine Nitrate Urine Bilirubin Urine Urobilinogen Ur Leukocyte Esterase Urine RBC Urine WBC Ur Squamous Epith Cells Urine Bacteria Ur Culture Indicated? Acetaminophen Ethyl Alcohol 04/16/22 04/16/22 04/16/22 03:50 03:50 05:44 WBC RBC Hgb Hct MCV MCH MCHC RDW Plt Count Neut % (Auto) Lymph % (Auto) [place] % (Auto) Eos % (Auto) Baso % (Auto) Lymph # (Auto) [place] # (Auto) Baso # (Auto) Total Counted Seg Neutrophils % Band Neutrophils % Lymphocytes % (Manual) Monocytes % (Manual) Eosinophils % (Manual) Neutrophils # (Manual) RBC Morphology Macrocytosis PT 25.1 H INR 2.2 H Sodium 138 Potassium 3.0 L Chloride 104 Carbon Dioxide 26 BUN < 2 L Creatinine 0.38 L Estimated GFR > 60 BUN/Creatinine Ratio 5.3 L Glucose 102 Lactate Calcium 7.7 L Phosphorus 3.4 Magnesium 2.0 Total Bilirubin 4.5 H Direct Bilirubin AST 137 H ALT 31 Alkaline Phosphatase 252 H Ammonia Total Protein 7.0 Albumin 2.9 L Globulin 4.1 Albumin/Globulin Ratio 0.7 L Vitamin B12 717 Folate 3.3 Procalcitonin Urine Color Urine Appearance Urine pH Ur Specific [place] Urine Protein Urine Glucose (UA) Urine Ketones Urine Occult Blood Urine Nitrate Urine Bilirubin Urine Urobilinogen Ur Leukocyte Esterase Urine RBC Urine WBC Ur Squamous Epith Cells Urine Bacteria Ur Culture Indicated? Acetaminophen Ethyl Alcohol 04/16/22 08:30 WBC RBC Hgb Hct MCV MCH MCHC RDW Plt Count Neut % (Auto) Lymph % (Auto) [place] % (Auto) Eos % (Auto) Baso % (Auto) Lymph # (Auto) [place] # (Auto) Baso # (Auto) Total Counted Seg Neutrophils % Band Neutrophils % Lymphocytes % (Manual) Monocytes % (Manual) Eosinophils % (Manual) Neutrophils # (Manual) RBC Morphology Macrocytosis PT INR Sodium Potassium Chloride Carbon Dioxide BUN Creatinine Estimated GFR BUN/Creatinine Ratio Glucose Lactate Calcium Phosphorus Magnesium Total Bilirubin Direct Bilirubin AST ALT Alkaline Phosphatase Ammonia Total Protein Albumin Globulin Albumin/Globulin Ratio Vitamin B12 Folate Procalcitonin Urine Color Yellow Urine Appearance Clear Urine pH 7.0 Ur Specific [place]ba <=1.005 Urine Protein Negative Urine Glucose (UA) Trace H Urine Ketones Negative Urine Occult Blood Negative Urine Nitrate Negative Urine Bilirubin Negative Urine Urobilinogen 2.0 H Ur Leukocyte Esterase Negative Urine RBC None seen Urine WBC None seen Ur Squamous Epith Cells None seen Urine Bacteria Occasional (0-1) Ur Culture Indicated? Cult not indicated Acetaminophen Ethyl Alcohol FOR[facility]LY [facility], 1928–1983 Medical History Actinic keratoses Actinic skin damage Fractures (2014) Hallux rigidus, left foot (09/2017) Hand injury Hearing loss (2006) Hypertension (2017) Pruritic rash Surgical History Anesthesia complication History of bilateral salpingectomy (06/2017) History of ear surgery (1995) History of gynecologic surgery (1982) History of unilateral oophorectomy (06/2017) Status post left foot surgery (09/2017) Family History Father Heart disease Hypertension Mother Cancer Diabetes mellitus Brother No problems noted. Sister Hypertension Social History household members: other Smoking Status: Never smoker alcohol intake: current substance use type: does not use Discharge Plan Discharge Plan Patient Disposition: Home Provider Discharge Comment: You were admitted to the hospital with jaundice, there was some concern for infection but nothing had been found. You are being prescribed an antibiotic out of an abundance of precaution at this time to continue for 5 days. I recommend you follow up with Dr. Fermin, and gastroen terology for your new diagnosis of cirrhosis. Discharge orders & Medications Prescriptions: New amoxicillin-pot clavulanate 875-125 mg tablet 1 tab PO BID 5 Days Qty: 10 0RF ondansetron 4 mg tablet,disintegrating 4 mg PO Q8H PRN (Reason: nausea and vomiting) 30 Days Qty: 30 0RF Continued cetirizine [Zyrtec] 10 mg tablet 10 mg PO DAILY PRN amlodipine 2.5 mg tablet 2.5 mg PO DAILY Qty: 90 3RF hydroxyzine HCl 25 mg tablet 12.5 - 50 mg PO TID PRN (Reason: itching) Qty: 30 5RF clobetasol 0.05 % cream 1 applic topical DAILY Medication counseling provided by Pharmacist: Yes Follow up/Referrals: Zacarias Fermin MD [Primary Care Provider] - Diet/Activity/Treatments Diet: Diet as Tolerated Activity: As tolerated Discharge Data Primary Care Provider: Zacarias Fermin Quality VTE Deep Vein Thrombosis/Pulmonary Embolism Present on Admission: No
[2022-04-16 23:24] LABS: Enterococcus species Not Detected (Not Detect); Listeria monocytogenes Not Detected (Not Detect); Staphylococcus species Not Detected (Not Detect)
[2022-04-16 23:27] LABS: Acinetobacter baumannii Not Detected (Not Detect); Enterobacteriaceae species Not Detected (Not Detect); Streptococcus agalactiae (Gr B Not Detected (Not Detect); Streptococcus pneumonia Not Detected (Not Detect); Streptococcus pyogenes (Gr A) Not Detected (Not Detect); Streptococcus species Not Detected (Not Detect)
[2022-04-16 23:28] LABS: Candida albicans Not Detected (Not Detect); Candida glabrata Not Detected (Not Detect); Candida krusei Not Detected (Not Detect); Candida parapsilosis Not Detected (Not Detect); Candida tropicalis Not Detected (Not Detect); E. coli Not Detected (Not Detect); Enterobacter cloacae complex Not Detected (Not Detect); Haemophilus influenzae Not Detected (Not Detect); Neisseria meningitidis Not Detected (Not Detect); Proteus species Not Detected (Not Detect); Pseudomonas aeruginosa Not Detected (Not Detect); Serratia marcescens Not Detected (Not Detect)
[2022-04-16 23:50] LABS: HBsAg Screen Negative (Negative); Hepatitis A Antibody IgM Negative (Negative); Hepatitis B Core Antibody IgM Negative (Negative); Hepatitis C Antibody <0.1 s/co ratio (0.0-0.9)
[2022-04-17 05:40] LABS: Hepatitis B Surf Ab Qualitativ Non Reactive (.)
== END 2022-04-16 14:59 | disposition home or self-care (01) | DRG 280 ==
LOC: ED 18:01 → AC 04-16 04:45
PROVIDERS: Emergency Medicine; Admitting Provider Internal Medicine; Emergency Provider Emergency Medicine; PCP Student in an Organized Health Care Education/Training Program; Referring Provider Emergency Medicine; Visit Provider Internal Medicine
DX: K70.30 Alcoholic cirrhosis of liver without ascites (principal); F10.10 Alcohol abuse, uncomplicated; D72.829 Elevated white blood cell count, unspecified; E44.0 Moderate protein-calorie malnutrition; E87.6 Hypokalemia; D68.9 Coagulation defect, unspecified; K29.20 Alcoholic gastritis without bleeding; I10 Essential (primary) hypertension; L29.9 Pruritus, unspecified; Y90.0 Blood alcohol level of less than 20 mg/100 ml; Z68.23 Body mass index [BMI] 23.0-23.9, adult; Z20.822 Contact with and (suspected) exposure to COVID-19
CPT/HCPCS: 36415; 71260; 74177; 74183; 76700; 80053; 80074; 80320; 80329; 81001; 82140; 82248; 82607; 82746; 83605; 83690; 83735; 84100; 84145; 85007; 85025; 85610; 85730; 86706; 87040; 87150; 87635; 93005; 96365; 99284; C9803; G0378; A9579; G0480; J1650; J2405; J2543; Q9967

== ENCOUNTER → 2022-11-10 09:16 | Outpatient (CLI) | payer OTHER, MEDICAID, SELFPAY ==
--- NOTE | 2022-11-10 | DI.MG.S_ITS ---
BILATERAL DIGITAL SCREENING MAMMOGRAM 3D/2D WITH CAD: 11/10/2022 CLINICAL: Routine screening. Comparison is made to exams dated: 10/24/2021 mammogram, 08/07/2020 mammogram, and 04/08/2019 mammogram - [facility]. There are scattered areas of fibroglandular density in both breasts (category b / 25%-50% glandular tissue). Current study was also evaluated with a Computer Aided Detection (CAD) system. No significant masses, calcifications, or other findings are seen in either breast. There has been no significant interval change. IMPRESSION: NEGATIVE There is no mammographic evidence of malignancy. A 1 year screening mammogram is recommended. Based on the Tyrer Cuzick model (a risk assessment model) the patient's lifetime risk is 3.5% and her 10 year risk is 1.6%. According to the ACR, ACS, and NCCN guidelines, an annual breast MRI exam along with mammogram is recommended if the patient's lifetime risk is 20% or greater. This exam was interpreted at Station ID: [id number]. NOTE: For mammograms, a report in lay terms will be sent to the patient. Approximately 15% of breast malignancies will not be visualized mammographically. In the management of a palpable breast mass, a negative mammogram must not discourage biopsy of a clinically suspicious lesion. Electronically Signed By: Ian hanna/morgan:11/10/2022 13:07:05 letter sent: Normal Exam ACR BI-RADS Category 1: Negative 3341F
== END ==
PROVIDERS: PCP Student in an Organized Health Care Education/Training Program; Referring Provider Student in an Organized Health Care Education/Training Program; Visit Provider Student in an Organized Health Care Education/Training Program
DX: Z12.31 Encounter for screening mammogram for malignant neoplasm of breast (principal)
CPT/HCPCS: 77063; 77067

== ENCOUNTER → 2024-02-11 11:13 | Outpatient (CLI) | payer OTHER, SELFPAY ==
--- NOTE | 2024-02-11 11:14 | DI.MG.S_ITS ---
BILATERAL DIGITAL SCREENING MAMMOGRAM 3D/2D WITH CAD: 02/11/2024 CLINICAL: Routine screening. Comparison is made to exams dated: 11/10/2022 mammogram, 10/24/2021 mammogram, and 08/07/2020 mammogram - [facility]. There are scattered areas of fibroglandular density in both breasts (category b / 25%-50% glandular tissue). Current study was also evaluated with a Computer Aided Detection (CAD) system. No significant masses, calcifications, or other findings are seen in either breast. There has been no significant interval change. IMPRESSION: NEGATIVE There is no mammographic evidence of malignancy. A 1 year screening mammogram is recommended. Based on the Tyrer Cuzick model (a risk assessment model) the patient's lifetime risk is 3.4% and her 10 year risk is 1.6%. According to the ACR, ACS, and NCCN guidelines, an annual breast MRI exam along with mammogram is recommended if the patient's lifetime risk is 20% or greater. This exam was interpreted at Station ID: [id number]. NOTE: For mammograms, a report in lay terms will be sent to the patient. Approximately 15% of breast malignancies will not be visualized mammographically. In the management of a palpable breast mass, a negative mammogram must not discourage biopsy of a clinically suspicious lesion. Electronically Signed By: Rosendo altamirano/morgan:02/11/2024 13:31:05 letter sent: Normal Exam ACR BI-RADS Category 1: Negative [id number]
== END ==
PROVIDERS: PCP Family Medicine; Referring Provider Family Medicine; Visit Provider Family Medicine
DX: Z12.31 Encounter for screening mammogram for malignant neoplasm of breast (principal); R92.323 Mammographic fibroglandular density, bilateral breasts
CPT/HCPCS: 77063; 77067

== ENCOUNTER 2024-08-25 08:02 | Emergency (ER) | payer BC, SELFPAY ==
[2024-08-25 08:12] VITALS: BP 118/66; PULSE 99; RESP 20; TEMP 36.6; O2SAT 98; BMI 24.9
--- NOTE | 2024-08-25 08:19 | DI.RAD.S_ITS ---
PROCEDURE: XR ANKLE RT MIN 3V INDICATIONS: glf TECHNIQUE: 3 views of the ankle were acquired. COMPARISON: [facility], , XR ANKLE RT MIN 3V, 01/10/2021, 10:03. FINDINGS: Bones: Trimalleolar fracture, including a fibular fracture at the level of the syndesmosis and below the syndesmosis. The ankle mortise is not maintained. Soft tissues: Large effusion. Significant ankle swelling. IMPRESSION: Trimalleolar fracture, with unstable fracture features. Recommend orthopedic consultation. Dictated by: Evan Cortez M.D. on 08/25/2024 at 8:59 Approved by: Evan Cortez M.D. on 08/25/2024 at 9:00
--- NOTE | 2024-08-25 08:19 | DI.RAD.S_ITS ---
PROCEDURE: XR FOOT RT MIN 3V INDICATIONS: glf TECHNIQUE: 3 views of the foot were acquired. COMPARISON: [facility], CR, XR FOOT RT MIN 3V, 01/10/2021, 10:03. FINDINGS: Bones: No foot fractures or dislocations. No suspicious bony lesions. Ankle fractures described on the ankle series Soft tissues: Large tibiotalar joint effusion. Achilles tendon appears normal. IMPRESSION: No acute bony abnormality of the foot. Please see same day ankle series for further discussion. Dictated by: Evan Cortez M.D. on 08/25/2024 at 9:00 Approved by: Evan Cortze M.D. on 08/25/2024 at 9:02
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
--- NOTE | 2024-08-25 09:13 | ED_ITS ---
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 States last night when to take her dog out did not notice that her last to bottom steps out of the house were icy and she slipped and fell injuring her right ankle. Denies any other injuries. Patient has pain, ecchymosis, swelling and is unable to weightbear. Patient denies any numbness or sensation changes. States hydroxyzine and gabapentin her only daily medications. No known drug allergies. Patient does not use any tobacco, does drink alcohol, no recreational drugs. She walks independently. Related Data Previous Rx's Medication Instructions Recorded gabapentin 300 mg capsule 300 mg PO BID PRN itching #180 caps 08/11/23 estradiol 0.01% (0.1 mg/gram) 0.25 appful vaginal BEDTIME #42.5 07/06/24 vaginal cream grams hydroxyzine HCl 25 mg tablet 12.5 - 50 mg (0.5 - 2 x 25 mg) PO 08/03/24 TID PRN itching #90 tabs oxycodone 5 mg tablet 5 mg PO QID PRN pain #14 tabs 08/25/24 Allergies Allergy/AdvReac Type Severity Reaction Status Date / Time No Known Drug Allergies Allergy Verified 07/06/24 15:27 Review of Systems Review of Systems ROS Unobtainable: All systems reviewed & are unremarkable except as noted in HPI and below Patient History Medical History Anemia Hyperkalemia Hypertension (2017) Bilateral knee pain Hamstring tendinitis 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 Sister Hypertension Social History household members: other Smoking Status: Never smoker alcohol intake: current substance use type: does not use Smoking Status: Never smoker alcohol intake frequency: 3 or more drinks per day Exam Narrative Exam Narrative: GENERAL: Alert and oriented x three, female in mild distress HEENT: Head normocephalic, atraumatic, EOMI, pupils reactive, face symmetric, moist mucous membranes NECK: Supple, full range of motion CARDIOVASCULAR: Regular rate and rhythm without murmurs, rubs or gallops. RESPIRATORY: Breath sounds equal bilaterally, no wheezes rales or rhonchi. ABDOMEN: Soft, nontender. Normoactive bowel sounds all 4 quadrants. No guarding or rebound, rigidity, no mass EXTREMITIES: Normal range of motion except at the right ankle. Patient has swelling, ecchymosis of the ankle and foot. Nontender over the toes, metatarsals and talus and calcaneal area patient does have tenderness over the medial malleolus and laterally. Has good range of motion of her toes. No tenderness of the proximal tibia fibula, no tenderness over the knee, thigh or hip. Cap refills less than 2 seconds with 2+ dorsalis pedis., no clubbing. Neurovascularly intact. NEUROLOGICAL: Cranial nerves II through XII grossly intact. Moving all extremities SKIN: Warm, dry, no petechiae, no rashes or lesions. Initial Vital Signs Initial Vital Signs: Vital Signs Temperature 98 F 08/25/24 08:12 Pulse Rate 99 H 08/25/24 08:12 Respiratory Rate 20 08/25/24 08:12 Blood Pressure 118/66 08/25/24 08:12 Pulse Oximetry 98 08/25/24 08:12 Oxygen Delivery Method Room Air 08/25/24 08:12 Course Orders Ordered: ED Orders 08/25/24 10:08 CT LE RT wo con Stat Discontinued Medications Hydrocodone Bitart/Acetaminophen (Hydrocodone/Acet 5/325 Tablet) 1 tab PO NOW ONE Stop: 08/25/24 09:48 Last Admin: 08/25/24 10:04 Dose: 1 tab Documented By: CARMINA Vital Signs Vital signs: Vital Signs - 8 hr 08/25/24 11:29 Pulse Rate 88 Respiratory Rate 16 Blood Pressure 139/67 Pulse Oximetry 99 Oxygen Delivery Method Room Air MDM - Extremity Injury (Lower) Imaging Data Extremity x-ray #1: Radiologist's Impression: [address] [address] XRay Report Signed Patient: Ana Tyler MR#: [id number] : 1960 Acct:[id number] Age/Sex: 63 / F Date of Service: 08/25/24 Loc: ED Accession Number: [id number] Procedure: XR foot RT min 3V Ordering Provider: Shagufta Aguilar D.O. PROCEDURE: XR FOOT RT MIN 3V INDICATIONS: glf TECHNIQUE: 3 views of the foot were acquired. COMPARISON: [facility], XR FOOT RT MIN 3V, 01/10/2021, 10:03. FINDINGS: Bones: No foot fractures or dislocations. No suspicious bony lesions. Ankle fractures described on the ankle series Soft tissues: Large tibiotalar joint effusion. Achilles tendon appears normal. IMPRESSION: No acute bony abnormality of the foot. Please see same day ankle series for further discussion. Dictated by: Evan Cortez M.D. on 08/25/2024 at 9:00 Approved by: Evan Cortez M.D. on 08/25/2024 at 9:02 Extremity x-ray #2: Radiologist's Impression: [address] [address] XRay Report Signed Patient: Ana Tyler MR#: [id number] : 1960 Acct:[id number] Age/Sex: 63 / F Date of Service: 08/25/24 Loc: ED Accession Number: [id number] Procedure: XR ankle RT min 3V Ordering Provider: Shagufta Aguilar D.O. PROCEDURE: XR ANKLE RT MIN 3V INDICATIONS: glf TECHNIQUE: 3 views of the ankle were acquired. COMPARISON: [facility], , XR ANKLE RT MIN 3V, 01/10/2021, 10:03. FINDINGS: Bones: Trimalleolar fracture, including a fibular fracture at the level of the syndesmosis and below the syndesmosis. The ankle mortise is not maintained. Soft tissues: Large effusion. Significant ankle swelling. IMPRESSION: Trimalleolar fracture, with unstable fracture features. Recommend orthopedic consultation. Dictated by: Evan Cortez M.D. on 08/25/2024 at 8:59 Approved by: Evan Cortez M.D. on 08/25/2024 at 9:00 [facility] Narrative Medical decision making narrative: 63-year-old female with some mechanical ground level fall, appears to have a trimalleolar fracture. She was neurovascularly intact. We will give a dose of oral pain medication here in the department placed in the splint. Foot x-ray shows no acute fractures to the bones of the foot redemonstrates ankle fracture. Ankle x-ray shows trimalleolar fracture including fibular fracture level syndesmosis and below syndesmosis. Ankle mortise is not maintained. Large effusion. Recheck after splint placed by nursing. Paged at 9:[address] Vitale, orthopedic surgery at 1009. Does ask for CT lower extremity for surgical planning purposes does not need to wait for final report patient can discharge home after. Recommends bulky Lim splint, nonweightbearing and to call the office to set up follow up for surgical repair in the next week. Discharge Plan Departure Patient Disposition: Home Clinical Impression: Closed right trimalleolar fracture Instructions: DI for Ankle Fracture Activity Restrictions/Additional Instructions: Follow up with Orthopedic surgery, call today to set up a follow up appointment you will likely require surgical repair of your fracture in your ankle. Contact is included below, their offices in [place] and [place]. Use crutches, nonweightbearing until cleared by orthopedic surgery. You can take acetaminophen up to a 1000 mg every 6 hours as needed for pain. If inadequate for pain you can take oxycodone 1-2 tablets every 6 hours as needed. This medication can make you sleepy do not drive, perform hazardous activities or make any major decisions while taking it. This medication will make you constipated please take a stool softener once to twice daily until stools are soft and regular. Prescription sent to [facility] in [place]. Splint Care: Keep splint clean and dry. Elevated affected body part to decrease swelling. OK to use ice pack on the affected body part. Use for 15-20 minutes each time, for 5-6x per day. If you develop worsening pain, numbness, tingling, discoloration of the affected body part, loosen the splint by loosening the DENA wrap, and either see your doctor for an urgent re-assessment, or return to the Emergency Department. Return to the Emergency Department for any new or worsening symptoms. Prescriptions: New oxycodone 5 mg tablet 5 mg PO QID PRN (Reason: pain) Qty: 14 0RF No Action gabapentin 300 mg capsule 300 mg PO BID PRN (Reason: itching) Qty: 180 3RF hydroxyzine HCl 25 mg tablet 12.5 - 50 mg PO TID PRN (Reason: itching) Qty: 90 1RF estradiol 0.01 % (0.1 mg/gram) cream 0.25 appful vaginal BEDTIME Qty: 42.5 3RF Rx Instructions: 1/4 applicatorful at bedtime nightly x 2 weeks then twice weekly thereafter Referrals: Rehan Sheldon DO [Primary Care Provider] - Mona Vitale MD [Physician] - Stand Alone Forms: Patient Portal/API/Survey
[2024-08-25] MEDS: HYDROCODONE/ACET 5/325 TABLET 1 TAB PO (10:04)
--- NOTE | 2024-08-25 10:08 | DI.CT.S_ITS ---
PROCEDURE: CT LE RT WO CON INDICATIONS: Right ankle fracture TECHNIQUE: Noncontrast 3-mm axial sections acquired from the distal tibial shaft to the talar dome, with coronal and sagittal reformats.. COMPARISON: [facility], CR, XR ANKLE RT MIN 3V, 08/25/2024, 8:30. FINDINGS: Image quality: Excellent. Bones: Comminuted, mildly displaced distal fibular fracture is present with extension into the joint space. Mildly displaced comminuted medial malleolar fracture is also present with fracture lucencies extending into the joint space. There is slight subluxation and medial widening at the tibiotalar joint space. Small punctate calcifications are present within the joint space. Soft tissues: Soft tissue edema at the foot and ankle are present. IMPRESSION: Mildly displaced comminuted distal fibular and medial malleolar fractures. Slight subluxation and medial widening at the tibiotalar joint space. Dictated by: Jaylene Bello M.D. on 08/25/2024 at 12:43 Approved by: Jaylene Bello M.D. on 08/25/2024 at 12:46
[2024-08-25 11:29] VITALS: BP 139/67; PULSE 88; RESP 16; O2SAT 99
== END 2024-08-25 11:37 | disposition home or self-care (01) ==
PROVIDERS: Emergency Provider Emergency Medicine; PCP Family Medicine
DX: S82.851A Displaced trimalleolar fracture of right lower leg, initial encounter for closed fracture (principal); L11.1 Transient acantholytic dermatosis [Grover]; W18.30XA Fall on same level, unspecified, initial encounter
CPT/HCPCS: 29515; 73610; 73630; 73700; 99283; 99284

== ENCOUNTER 2024-08-30 13:01 | Day surgery (SDC) | payer BC, SELFPAY ==
[2024-08-29 07:28] VITALS: BMI 25.7
--- NOTE | 2024-08-30 | DI.RAD.S_ITS ---
PROCEDURE: XR ANKLE RT 2V INDICATIONS: OPEN REDUCTION INTERNAL FIXATION RIGHT ANKLE TECHNIQUE: 5 views of the ankle were acquired COMPARISON: [facility], CR, XR ANKLE RT MIN 3V, 08/25/2024, 8:30. FINDINGS: Bones: Hardware is noted status post open reduction internal fixation of the medial and lateral malleoli. Two screws traverse the medial malleolus and a plate and multiple anchoring screws span the distal fibula. There is satisfactory alignment. Ankle mortise is normally aligned. No suspicious bony lesions. Soft tissues: No tibiotalar joint effusion. Achilles tendon appears normal. IMPRESSION: Satisfactory alignment status post bimalleolar ORIF. Dictated by: Mason Esposito M.D. on 08/31/2024 at 14:39 Approved by: Mason Esposito M.D. on 08/31/2024 at 14:50
[2024-08-30 13:48] VITALS: BMI 24.9
[2024-08-30 14:00] VITALS: BP 137/74; PULSE 92; RESP 12; TEMP 36.4; O2SAT 96
[2024-08-30 14:01] LABS: Add Manual Diff / Slide Review NO; Basophils Absolute Auto 100 /uL (0-100); Basophils Percent Auto 0.6 % (0-2); Eosinophils Absolute Auto 300 /uL (0-450); Hematocrit 41.4 % (36-46); Hemoglobin 14.5 g/dL (12.0-16.0); Lymphocytes Absolute Auto 1400 /uL (1100-4500); Mean Corpuscular HGB Conc 34.9 % (30-36); Mean Corpuscular Volume 100.2 fL (80-100); Monocytes Absolute Auto 800 /uL (0-900); Neutrophils Absolute Auto 7600 /uL (1500-7000); Neutrophils Percent Auto 74.4 % (50-75); Platelet Count 203 X10^3/uL (150-400); Red Blood Cell Count 4.13 X10^6/uL (4.0-5.2); White Blood Cell Count 10.3 X10^3/uL (4.5-11.0)
[2024-08-30] MEDS: LACTATED RINGERS 1,000 ML 42 ML IV ×2 (14:03→16:12)
[2024-08-30] MEDS: FAMOTIDINE 20 MG/2 ML VIAL IV (14:08)
[2024-08-30] MEDS: GABAPENTIN 600 MG TABLET PO (14:12)
[2024-08-30] MEDS: ACETAMINOPHEN 325 MG TABLET 650 MG PO (14:12)
[2024-08-30 14:18] LABS: Alanine Aminotransferase 51 IU/L (<35); Albumin 4.5 g/dL (3.5-5.0); Albumin Globulin Ratio 1.1 (1.0-2.8); Alkaline Phosphatase 197 U/L (38-126); Aspartate Aminotransferase 144 IU/L (14-36); BUN Creatinine Ratio 16.3 (6-22); Blood Urea Nitrogen 7 mg/dL (7-17); Calcium 9.1 mg/dL (8.4-10.2); Carbon Dioxide 25 mmol/L (22-32); Chloride 104 mmol/L (98-107); Estimated Glomerular Filt Rate > 60 mL/min (>60); Globulin 4.1 g/dL (1.7-4.1); Glucose 102 mg/dL (80-110); HEMOLYSIS < 15 (0-50); Potassium 3.5 mmol/L (3.4-5.1); Sodium 140 mmol/L (137-145); Total Protein 8.6 g/dL (6.3-8.2)
--- NOTE | 2024-08-30 14:24 | PM.PREOP ---
Pre-operative Note Interval Note History & Physical reviewed/Exam performed by Physician: Yes Changes to H&P: No
--- NOTE | 2024-08-30 14:43 | SUR.PREOP ---
Block start time 1431 with a time out . Monitoring initiated and maintained throughout procedure. Oxygen and medications given per anesthesiologist instructions. Patient remained stable throughout procedure, no adverse reactions noted. Block end time 1438.
[2024-08-30] MEDS: CEFAZOLIN 2 GM/100 ML PREMIX 100 ML IV (14:55)
--- NOTE | 2024-08-30 15:19 | SUR.OPER ---
Supine on padded OR bed, head on pillow, arms secured on padded arm boards at <90 degrees abduction, legs uncrossed, safety belt at thigh, tape over blanket over left lower leg. Right leg under control of surgeon and blanket bump under right hip.
[2024-08-30] MEDS: BUPIVACAINE 0.25% W/ EPI 30 ML VIAL INJ (15:26)
[2024-08-30 16:50] VITALS: BP 94/60; PULSE 90; RESP 22; TEMP 36.6; O2SAT 95
[2024-08-30 16:54] VITALS: BP 91/62; PULSE 84; RESP 16; TEMP 36.6; O2SAT 96
[2024-08-30 16:59] VITALS: BP 105/66; PULSE 82; RESP 17; TEMP 36.6; O2SAT 96
[2024-08-30 17:06] VITALS: BP 113/75; PULSE 82; RESP 15; TEMP 36.6; O2SAT 99
--- NOTE | 2024-08-30 17:39 | P.OP_ITS ---
Operative Date/Time/Diagnoses Date of procedure: 08/30/24 Time of procedure: 17:39 Pre-op diagnosis: Trimalleolar ankle fracture, right Disruption of the syndesmosis right Post-op diagnosis: same Procedure & Clinicians Procedure: Open reduction internal fixation trimalleolar right ankle fracture without fixation posterior lip CPT code 58175 Open reduction internal fixation syndesmosis right ankle CPT code 03917 Same procedure as scheduled: Yes Indications: 63-year-old female with a displaced right trimalleolar ankle fracture was indicated for surgical fixation to improve alignment reduce the risk of posttraumatic arthritis and dysfunction. The risks and benefits of the procedure have been discussed with the patient and given the opportunity to ask questions. The risks of surgery include but are not limited to infection, malunion, nonunion, persistence of pain, damage to nerves and blood vessels, posttraumatic arthritis, DVT, PE, cardiopulmonary complications and . The patient expressed a thorough understanding of the risks and benefits of surgery and has elected to proceed. Consent was signed in the office today. Surgeon: Milana Sin Click Yes if Unassisted: Yes Anesthesia Type: General, Peripheral nerve block and Local Operative Notes Findings: Displaced trimalleolar ankle fracture, unstable syndesmosis. Separate segmental osteoporotic right fibula fracture with a Herman a and Herman B component and osteoporotic bone. Displaced medial malleolus fracture and small posterior malleolus fracture and syndesmotic disruption. Closure Type: primary Specimen(s): none sent Prosthetic devices, grafts, tissues, transplants, or devices: Arthrex 5 hole lateral locking plate for the fibula. With locking 2.7 and 3.5 screws. Syndesmosis fixation with 3.5 cortical screw Syndesmosis fixation with Arthrex tightrope Medial malleolus fixation with 2x 4.0 cannulated screws 1 short head 1 long head 40 mm Estimated Blood Loss (mL): 10 Blood products transfused: none Tourniquet time (min): 54 Procedure in detail: The patient was seen in the preoperative area the site of surgery was marked informed consent confirmed. This is the right ankle. A regional block was placed by the anesthesia team for postoperative pain control. The patient was taken to the operating room placed supine on operative table. General anesthesia was administered. The right lower extremity was prepped and draped standard sterile fashion a formal time-out procedure was performed confirming the patient's side and site of surgery administration of appropriate preoperative antibiotic. All were in agreement. Attention was turned to the right ankle. The Esmarch was used for exsanguination the tourniquet raised on the thigh to 250 mmHg. The planned incisions were drawn out laterally and medially. A medial incision was made 1st to address the medial malleolus fracture. Medial malleolus fracture ORIF Medial incision was made the fracture was exposed. The periosteum was infolded into the fracture site. This was removed. The fracture hematoma was evacuated. The medial part of the talus was visualized through the fracture and was intact. Fracture was then reduced and pinned in place. This was checked on fluoroscopy for anatomic reduction. Then 2 of the 4.0 cannulated screws from the Arthrex set were used to fixate ankle fracture. One was a short thread and 1 was a long thread screw. This achieved anatomic reduction of the medial malleolus. This wound was irrigated and closed with 2-0 Vicryl 4-0 Monocryl and 3-0 nylon suture. Lateral malleolus ORIF Next the fibula was fixed with a 10 cm incision along the distal fibula curving anterior distally. This was taken down through the skin and subcutaneous tissues to the level of the fibula. The fibula fracture was complex and comminuted there was a separate Herman a and a Herman B fracture fragment. The bone was profoundly osteoporotic. The fracture hematoma was cleaned and the Herman B fragment was reduced with a lobster claw clamp and then a K-wire was used to hold this and a pointed reduction clamp for the Herman a distal portion. Once this was anatomically reduced and confirmed on intraoperative fluoroscopy a 5 hole lateral hook plate from the fibula plates in the Arthrex set was applied this hook plate allowed us to achieve fixation in the small Herman a fragment as well as extend up beyond the Herman B fragment. This was positioned in place and tamped distally to secure the tines. Next a nonlocking 3.5 screw was placed in the oblong hole in a compression fashion to secure the plate. Once this was completed 3.5 locking screws were placed in the shaft due to the poor bone quality and 2.7 locking screws were placed in the distal locking holes. At this time it was noted that the oblong nonlocking screw was loose and so this was later removed. The fracture had a small posterior malleolus fracture fragment and as expected unstable syndesmosis. Because of the posterior malleolus fracture was small this was treated closed. The syndesmosis was fixed as listed below. Syndesmosis ORIF. Syndesmosis was reduced with thumb pressure and pinned. This was checked on fl uoroscopy. A cannulated wire for the Arthrex tightrope was advanced through the oblong hole tetra cortical this was then overdrilled. The tightrope was deployed as it was tightening down the button some through the oblong hole of the fibula plate and into the osteoporotic bone in the fibula lateral cortex. This appeared to be secure on the anteromedial cortex of the fibula for a tricortical fixation however given the poor bone quality I elected to apply a tricortical 3.5 solid screw in the hole above the oblong hole for additional fixation. The tightrope was also reinforced with the FiberWire tied over the plate to prevent any further subsidence. The ankle was taken through range of motion and stressed on external rotation and the syndesmosis was stable and more to symmetric after syndesmotic reduction. Final x-rays were obtained in the AP mortise and lateral planes confirming anatomic or near anatomic alignment. An appropriate fixation. Tourniquet was released and hemostasis was achieved. Lateral incision was closed with 2-0 Vicryl 4-0 Monocryl and 3-0 nylon suture. Both incisions were injected with 20 cc of 0.25% Marcaine with epinephrine. Dressings were applied with Xeroform gauze Webril and a bulky Lim splint in neutral position with posterior and U slab. The patient was awoken from anesthesia and taken to the recovery unit in good condition there were no immediate complications from this procedure. Counts were correct. Complications: none Post-operative Condition: stable Disposition: PACU Plan for aftercare: Nonweightbearing or touchdown for 6 weeks postop. Aspirin 325 mg daily for DVT prophylaxis x6 weeks. Follow up in Orthopedic Clinic in 2-3 weeks for a wound check. Suture remain in place minimum of 2-3 weeks.
== END 2024-08-30 17:30 | disposition home or self-care (01) ==
PROVIDERS: Anesthesiology; PCP Family Medicine; Referring Provider Orthopaedic Surgery Foot and Ankle Surgery; Visit Provider Orthopaedic Surgery Foot and Ankle Surgery
PROC: 0SSF04Z Reposition Right Ankle Joint with Internal Fixation Device, Open Approach (ICD-10-PCS; CPT 27822; principal; 2024-08-30 14:45)
DX: S82.851A Displaced trimalleolar fracture of right lower leg, initial encounter for closed fracture (principal); G89.18 Other acute postprocedural pain; W00.1XXA Fall from stairs and steps due to ice and snow, initial encounter; Z87.891 Personal history of nicotine dependence
CPT/HCPCS: 27822; 27829; 64450; 73600; 76000; 80053; 85025; C1713; J0690; J2250; J2704; J3010